=== PATIENT | male | born 1935 | race Caucasian/White ===

== ENCOUNTER 2020-08-26 09:13 | Outpatient (CLI) | payer MEDICARE, OTHER, SELFPAY ==
--- NOTE | 2020-08-26 09:21 | XR_ITS ---
WS: [id number] Right foot, 3 views, 08/26/2020 Clinical Data: PLANTER FASCITIS RIGHT Comparison: None. Findings: No fractures or dislocations are seen. No bone destruction or erosion is noted. There is a small buni on at the head of the right first metatarsal.There is a small plantar spur and an Achilles spur. The plantar surface of the foot shows no abnormalities. XR/XR foot RT min 3V* [id number] Impression: Small bunion at the head of the right first metatarsal.
== END 2020-08-26 09:14 | disposition home or self-care (01) ==
PROVIDERS: PCP Electrodiagnostic Medicine; Visit Provider Electrodiagnostic Medicine
DX: M72.2 Plantar fascial fibromatosis (principal); M79.671 Pain in right foot; E11.9 Type 2 diabetes mellitus without complications; M21.611 Bunion of right foot
CPT/HCPCS: 73630

== ENCOUNTER 2021-01-18 19:41 | Emergency (ER) | payer MEDICARE, OTHER, SELFPAY ==
[2021-01-18 20:35] VITALS: BP 124/80; PULSE 94; RESP 18; TEMP 39.3; O2SAT 93; BMI 21.8
[2021-01-18 23:42] VITALS: BP 151/77; PULSE 89; RESP 20; O2SAT 91
--- NOTE | 2021-01-19 00:36 | ED_ITS ---
Documented by User: GERARDO Clarke 01/19/21 17:14 HPI - COVID General: Chief Complaint: COVID symptoms Stated Complaint: covid+/fever Time Seen by Provider: 01/18/21 23:37 Source: patient Mode of arrival: ambulatory Limitations: no limitations Triage information: No fever, cough or shortness of breath . Exposure to COVID + person last 14 days History of Present Illness: HPI Narrative: Patient is a nice 85-year-old male presents to ED today with a complaint of fever and low O2 readings at home. Patient tells me approximately a week ago he tested positive for COVID at [facility] by his PCP Dr. Yan. He states fevers began today-he was 102.7 upon arrival. States he has a history of diabetes and kidney disease. He states he has some mild chest pains with deep inhalation. MD complaint: known COVID positive Prior covid testing: yes, results known COVID 19 common symptoms: positive fever(s) and productive cough; negative dyspnea, fatigue, body aches, headache(s), nausea, vomiting or diarrhea COVID 19 other sytmptoms: negative chest pain Severity: mild Pertinent comorbid conditions: diabetes and chronic kidney disease Treatment prior to arrival: none COVID Results: No Data to Display Review of Systems Const: Reports: fever(s); Denies: body aches or fatigue Card: Denies: chest pain, palpitations, irregular heart rhythm, edema, swelling of feet/ankles, lightheadedness, syncope or pre-syncope Resp: Reports: productive cough and chest congestion; Denies: dyspnea GI: Denies: abdominal pain, nausea, vomiting or diarrhea Musc: Denies: neck pain or back pain Skin/Breast: Denies: rash Neuro: Denies: headache(s), numbness in extremities, weakness in extremities or sensory changes PFS ED PFSH: Family History (Updated 02/11/20 @ 13:16 by ARISTIDES Lino) Father , AT AGE 83 Dementia Mother , AT AGE 87 Diabetes Social History (Updated 02/11/20 @ 13:17 by ARISTIDES Lino) Smoking and tobacco status: never smoked Alcohol intake: never Adopted: No Caregiver/support person: No Lives independently: No Household members: spouse Marital status: Current occupational status: retired Physical Exam Const: COMMON NORMALS: no acute distress, patient oriented x3, no limitations and alert GENERAL APPEARANCE: cooperative and frail appearing ORIENTATION/CONSCIOUSNESS: Yes awake, Yes oriented to person, Yes oriented to place and Yes oriented to time HENMT: COMMON NORMALS: normocephalic and atraumatic HEAD & SCALP: normocephalic and atraumatic Resp: COMMON NORMALS: normal respiratory effort and clear to auscultation bilaterally AUSCULTATION: clear to auscultation bilaterally Cardio: COMMON NORMALS: regular rate and regular rhythm RATE: regular rate RHYTHM: regular rhythm GI: COMMON NORMALS: Normal to inspection, nondistended, normoactive bowel sounds present, Soft to palpation, non-tender and no masses PALPATION: Yes Soft to palpation Extremity: COMMON NORMALS: no calf tenderness and no pedal edema Neuro: LAVINIA COMA SCALE: document GCS findings Lavinia coma scale eye opening: Spontaneous [facility] coma scale verbal response: Orientated [facility] coma scale motor response: Obey commands [facility] coma scale total score: 15 COMMON NORMALS: patient oriented x3 SENSORIUM/ORIENTATION: Yes alert, Yes oriented to person, Yes oriented to place and Yes oriented to time Skin: COMMON NORMALS: no rashes or lesions noted GENERAL SKIN EXAM: no rashes or lesions noted Course Vital Signs: Vital signs: Vital Signs Temperature 98.5 F 01/19/21 04:12 Pulse Rate 87 01/19/21 05:12 Respiratory Rate 18 01/19/21 05:12 Blood Pressure 126/73 01/19/21 05:12 Pulse Oximetry 98 01/19/21 05:12 MDM - COVID MDM Narrative: Medical decision making narrative: Care transferred to Dr. Landis pending labs. He is satting around 93% on RA at rest. RT did do home O2 evaluation and stated he dropped to 87-88% with ambulation so qualifies for home O2 if he doesn't get admitted. Clinically he looks pretty good. Afebrile after medications. Lab Data: Labs: Lab Results 01/18/21 01/18/21 01/18/21 Range/Units 23:50 23:50 23:50 WBC 5.5 (4.0-10.0) 10^3/ uL RBC 4.53 (4.1-5.3) 10^6/u L Hgb 13.5 (11.7-16.6) g/dL Hct 41.4 L (42.0-52.0) % MCV 91.4 (80-94) fL MCH 29.8 (28.0-34.0) pg MCHC 32.6 (30.0-36.0) g/dL RDW 13.0 (12.1-15.1) % Plt Count 198 (130-400) 10^3/c mm MPV 11.2 H (7.4-10.4) fL Neut % (Auto) 79.0 % Lymph % (Auto) 11.5 % [place] % (Auto) 8.9 % Eos % (Auto) 0.0 % Baso % (Auto) 0.2 % Neut # (Auto) 4.33 (1.8-7.7) 10^3/u L Lymph # (Auto) 0.6 L (0.8-4.8) 10^3/u L [place] # (Auto) 0.5 (0.2-0.9) 10^3/u L Eos # (Auto) 0.0 (0.0-0.8) 10^3/u L Baso # (Auto) 0.0 (0.0-0.1) 10^3/u L Nucleated RBC % (a uto) 0 % Nucleated RBCs # 0.0 /100WBC PT (12.1-14.9) SECO NDS INR (0.8-1.2) APTT (23.9-36.7) SECO NDS Fibrinogen (174-498) mg/dL D-Dimer (0-0.59) ug/mIFE U Sodium 127 L (136-145) mmol/L Potassium 4.9 (3.5-5.1) mmol/L Chloride 93 L (98-107) mmol/L Carbon Dioxide 22 (22-29) mmol/L Anion Gap 16.9 (5-19) BUN 24 H (8-23) mg/dL Creatinine 1.0 (0.7-1.2) mg/dL GFR Calculation Not Reportable Glucose 218 H (65-115) mg/dL Calculated Osmolal ity 275 L (285-295) mOsm/k g Lactic Acid 1.2 (0.5-2.2) mmol/L Calcium 8.4 L (8.5-10.5) mg/dL Ferritin (30-400) ng/mL Total Bilirubin 0.2 (0.15-1.2) mg/dL AST 34 (0-40) U/L ALT 25 (0-41) U/L Alkaline Phosphata se 51 (40-130) IU/L Creatine Kinase (39-308) U/L Troponin T Gen 5 n g/L (0-15) ng/L C-Reactive Protein (0.0-4.9) mg/L Total Protein 6.4 L (6.6-8.7) g/dL Albumin 3.8 (3.5-5.2) g/dL Globulin 2.6 (1.3-4.6) g/dL Procalcitonin (0-0.5) ng/mL Influenza Type A A g (Negative) Influenza Type B A g (Negative) 01/18/21 01/18/21 01/19/21 Range/Units 23:50 23:50 02:46 WBC (4.0-10.0) 10^3/ uL RBC (4.1-5.3) 10^6/u L Hgb (11.7-16.6) g/dL Hct (42.0-52.0) % MCV (80-94) fL MCH (28.0-34.0) pg MCHC (30.0-36.0) g/dL RDW (12.1-15.1) % Plt Count (130-400) 10^3/c mm MPV (7.4-10.4) fL Neut % (Auto) % Lymph % (Auto) % [place] % (Auto) % Eos % (Auto) % Baso % (Auto) % Neut # (Auto) (1.8-7.7) 10^3/u L Lymph # (Auto) (0.8-4.8) 10^3/u L [place] # (Auto) (0.2-0.9) 10^3/u L Eos # (Auto) (0.0-0.8) 10^3/u L Baso # (Auto) (0.0-0.1) 10^3/u L Nucleated RBC % (a uto) % Nucleated RBCs # /100WBC PT 13.10 (12.1-14.9) SECO NDS INR 0.96 (0.8-1.2) APTT 31.9 (23.9-36.7) SECO NDS Fibrinogen 437 (174-498) mg/dL D-Dimer 0.78 H (0-0.59) ug/mIFE U Sodium (136-145) mmol/L Potassium (3.5-5.1) mmol/L Chloride (98-107) mmol/L Carbon Dioxide (22-29) mmol/L Anion Gap (5-19) BUN (8-23) mg/dL Creatinine (0.7-1.2) mg/dL GFR Calculation Glucose (65-115) mg/dL Calculated Osmolal ity (285-295) mOsm/k g Lactic Acid (0.5-2.2) mmol/L Calcium (8.5-10.5) mg/dL Ferritin 1563 H (30-400) ng/mL Total Bilirubin (0.15-1.2) mg/dL AST (0-40) U/L ALT (0-41) U/L Alkaline Phosphata se (40-130) IU/L Creatine Kinase 218 (39-308) U/L Troponin T Gen 5 n g/L 30 H (0-15) ng/L C-Reactive Protein 71.2 H (0.0-4.9) mg/L Total Protein (6.6-8.7) g/dL Albumin (3.5-5.2) g/dL Globulin (1.3-4.6) g/dL Procalcitonin 0.18 (0-0.5) ng/mL Influenza Type A A g (Negative) Influenza Type B A g (Negative) 01/19/21 Range/Units 02:46 WBC (4.0-10.0) 10^3/ uL RBC (4.1-5.3) 10^6/u L Hgb (11.7-16.6) g/dL Hct (42.0-52.0) % MCV (80-94) fL MCH (28.0-34.0) pg MCHC (30.0-36.0) g/dL RDW (12.1-15.1) % Plt Count (130-400) 10^3/c mm MPV (7.4-10.4) fL Neut % (Auto) % Lymph % (Auto) % [place] % (Auto) % Eos % (Auto) % Baso % (Auto) % Neut # (Auto) (1.8-7.7) 10^3/u L Lymph # (Auto) (0.8-4.8) 10^3/u L [place] # (Auto) (0.2-0.9) 10^3/u L Eos # (Auto) (0.0-0.8) 10^3/u L Baso # (Auto) (0.0-0.1) 10^3/u L Nucleated RBC % (a uto) % Nucleated RBCs # /100WBC PT (12.1-14.9) SECO NDS INR (0.8-1.2) APTT (23.9-36.7) SECO NDS Fibrinogen (174-498) mg/dL D-Dimer (0-0.59) ug/mIFE U Sodium (136-145) mmol/L Potassium (3.5-5.1) mmol/L Chloride (98-107) mmol/L Carbon Dioxide (22-29) mmol/L Anion Gap (5-19) BUN (8-23) mg/dL Creatinine (0.7-1.2) mg/dL GFR Calculation Glucose (65-115) mg/dL Calculated Osmolal ity (285-295) mOsm/k g Lactic Acid (0.5-2.2) mmol/L Calcium (8.5-10.5) mg/dL Ferritin (30-400) ng/mL Total Bilirubin (0.15-1.2) mg/dL AST (0-40) U/L ALT (0-41) U/L Alkaline Phosphata se (40-130) IU/L Creatine Kinase (39-308) U/L Troponin T Gen 5 n g/L (0-15) ng/L C-Reactive Protein (0.0-4.9) mg/L Total Protein (6.6-8.7) g/dL Albumin (3.5-5.2) g/dL Globulin (1.3-4.6) g/dL Procalcitonin (0-0.5) ng/mL Influenza Type A A g Negative (Negative) Influenza Type B A g Negative (Negative) Imaging Data: CXR: Radiologist's impression: [facility] [facility] [place], [place] [address]HFzb ReportSigned Patient: Celestine Duong #: [id number]: 8Acct#:[id number]/Sex: 85 / MADM Date: 01/18/21Loc: ERRoom/Bed:Attending Dr: Ordering Provider/Ordering MD: Rosi Esqueda Date of Service: 01/19/21 Procedure(s): XR chest 1V portable [id number] Accession Number(s): [id number] Report Number: [id number] PROCEDURE INFORMATION: Exam: XR Chest Exam date and time: 01/19/2021 12:34 AM Age: 85 years old Clinical indication: Cough and fever and shortness of breath; Patient HX: Cough/fever/sob. Covid +; Additional info: Covid, fevers TECHNIQUE: Imaging protocol: XR of the chest. Views: 1 view. COMPARISON: CR Chest 1 [place] [id number] 11/22/2016 4:03 PM FINDINGS: Lungs: Probable atelectasis versus scarring at the left costophrenic angle. More patchy infiltrates at the medial left lung base. There is a stable calcified granuloma in the left upper lung. Pleural spaces: Unremarkable. No pleural effusion. No pneumothorax. Heart/Mediastinum: Unremarkable. No cardiomegaly. Bones/joints: Unremarkable. XR/XR chest 1V portable [id number] IMPRESSION: Probable patchy infiltrates at the left lung base. Dictated By:Adam Faye MDSigned By:Adam Faye MDSigned Date/Time:01/19/210DD/ 0238 COVID Results: No Data to Display Discharge Plan Discharge Patient Disposition: Home Clinical Impression: COVID-19, Acute hyponatremia Condition: Stable Prescriptions: New albuterol sulfate 90 mcg/actuation HFA aerosol inhaler 2 inh INHALATION Q6H PRN (Reason: shortness of breath or wheezing) Qty: 8 RF: 0 Discharge Orders: Discharge ED (Routine); Ordered 01/19/21 Ordered By: Pascual Landis Other Ambulatory Orders: DME: Oxygen (Order) Location: None Selected Ordered By: Pascual Landis Referrals: Juan Luis Yan DO [Primary Care Provider] - 1-3 days Discharge Diet: Advance as tolerated Discharge Activity: Resume usual activity Patient Instructions: Opioid Safety Coding Level of Care Code ED Utility Assembler for Chg Fwd Exam Comprehensive Documented by User: Pascual Landis MD 01/19/21 04:49 HPI - COVID General: Chief Complaint: COVID symptoms Stated Complaint: covid+/fever Time Seen by Provider: 01/18/21 23:37 COVID Results: No Data to Display [facility] ED PFSH: Family History (Updated 02/11/20 @ 13:16 by ARISTIDES Lino) Father , AT AGE 83 Dementia Mother , AT AGE 87 Diabetes Social History (Updated 02/11/20 @ 13:17 by ARISTIDES Lino) Smoking and tobacco status: never smoked Alcohol intake: never Adopted: No Caregiver/support person: No Lives independently: No Household members: spouse Marital status: Current occupational status: retired Course Vital Signs: Vital signs: Vital Signs Temperature 98.5 F 01/19/21 04:12 Pulse Rate 87 01/19/21 05:12 Respiratory Rate 18 01/19/21 05:12 Blood Pressure 126/73 01/19/21 05:12 Pulse Oximetry 98 01/19/21 05:12 MDM - COVID MDM Narrative: Medical decision making narrative: I saw patient with above midlevel. Patient does have COVID-19. Any fall asleep he does have some slight hypoxia waking still not requiring room air but will place him on 2 L of home oxygen. Inflammatory markers are not elevated and chest x-ray shows slight airspace disease. I feel he is stable for discharge on home oxygen. Patient given steroid here and will discharge on albuterol. He does have pulse ox at home informed to monitor his pulse ox and return if he has any hypoxia. He understands agrees the plan. Lab Data: Labs: Lab Results 01/18/21 01/18/21 01/18/21 Range/Units 23:50 23:50 23:50 WBC 5.5 (4.0-10.0) 10^3/ uL RBC 4.53 (4.1-5.3) 10^6/u L Hgb 13.5 (11.7-16.6) g/dL Hct 41.4 L (42.0-52.0) % MCV 91.4 (80-94) fL MCH 29.8 (28.0-34.0) pg MCHC 32.6 (30.0-36.0) g/dL RDW 13.0 (12.1-15.1) % Plt Count 198 (130-400) 10^3/c mm MPV 11.2 H (7.4-10.4) fL Neut % (Auto) 79.0 % Lymph % (Auto) 11.5 % [place] % (Auto) 8.9 % Eos % (Auto) 0.0 % Baso % (Auto) 0.2 % Neut # (Auto) 4.33 (1.8-7.7) 10^3/u L Lymph # (Auto) 0.6 L (0.8-4.8) 10^3/u L [place] # (Auto) 0.5 (0.2-0.9) 10^3/u L Eos # (Auto) 0.0 (0.0-0.8) 10^3/u L Baso # (Auto) 0.0 (0.0-0.1) 10^3/u L Nucleated RBC % (a uto) 0 % Nucleated RBCs # 0.0 /100WBC PT (12.1-14.9) SECO NDS INR (0.8-1.2) APTT (23.9-36.7) SECO NDS Fibrinogen (174-498) mg/dL D-Dimer (0-0.59) ug/mIFE U Sodium 127 L (136-145) mmol/L Potassium 4.9 (3.5-5.1) mmol/L Chloride 93 L (98-107) mmol/L Carbon Dioxide 22 (22-29) mmol/L Anion Gap 16.9 (5-19) BUN 24 H (8-23) mg/dL Creatinine 1.0 (0.7-1.2) mg/dL GFR Calculation Not Reportable Glucose 218 H (65-115) mg/dL Calculated Osmolal ity 275 L (285-295) mOsm/k g Lactic Acid 1.2 (0.5-2.2) mmol/L Calcium 8.4 L (8.5-10.5) mg/dL Ferritin (30-400) ng/mL Total Bilirubin 0.2 (0.15-1.2) mg/dL AST 34 (0-40) U/L ALT 25 (0-41) U/L Alkaline Phosphata se 51 (40-130) IU/L Creatine Kinase (39-308) U/L Troponin T Gen 5 n g/L (0-15) ng/L C-Reactive Protein (0.0-4.9) mg/L Total Protein 6.4 L (6.6-8.7) g/dL Albumin 3.8 (3.5-5.2) g/dL Globulin 2.6 (1.3-4.6) g/dL Procalcitonin (0-0.5) ng/mL Influenza Type A A g (Negative) Influenza Type B A g (Negative) 01/18/21 01/18/21 01/19/21 Range/Units 23:50 23:50 02:46 WBC (4.0-10.0) 10^3/ uL RBC (4.1-5.3) 10^6/u L Hgb (11.7-16.6) g/dL Hct (42.0-52.0) % MCV (80-94) fL MCH (28.0-34.0) pg MCHC (30.0-36.0) g/dL RDW (12.1-15.1) % Plt Count (130-400) 10^3/c mm MPV (7.4-10.4) fL Neut % (Auto) % Lymph % (Auto) % [place] % (Auto) % Eos % (Auto) % Baso % (Auto) % Neut # (Auto) (1.8-7.7) 10^3/u L Lymph # (Auto) (0.8-4.8) 10^3/u L [place] # (Auto) (0.2-0.9) 10^3/u L Eos # (Auto) (0.0-0.8) 10^3/u L Baso # (Auto) (0.0-0.1) 10^3/u L Nucleated RBC % (a uto) % Nucleated RBCs # /100WBC PT 13.10 (12.1-14.9) SECO NDS INR 0.96 (0.8-1.2) APTT 31.9 (23.9-36.7) SECO NDS Fibrinogen 437 (174-498) mg/dL D-Dimer 0.78 H (0-0.59) ug/mIFE U Sodium (136-145) mmol/L Potassium (3.5-5.1) mmol/L Chloride (98-107) mmol/L Carbon Dioxide (22-29) mmol/L Anion Gap (5-19) BUN (8-23) mg/dL Creatinine (0.7-1.2) mg/dL GFR Calculation Glucose (65-115) mg/dL Calculated Osmolal ity (285-295) mOsm/k g Lactic Acid (0.5-2.2) mmol/L Calcium (8.5-10.5) mg/dL Ferritin 1563 H (30-400) ng/mL Total Bilirubin (0.15-1.2) mg/dL AST (0-40) U/L ALT (0-41) U/L Alkaline Phosphata se (40-130) IU/L Creatine Kinase 218 (39-308) U/L Troponin T Gen 5 n g/L 30 H (0-15) ng/L C-Reactive Protein 71.2 H (0.0-4.9) mg/L Total Protein (6.6-8.7) g/dL Albumin (3.5-5.2) g/dL Globulin (1.3-4.6) g/dL Procalcitonin 0.18 (0-0.5) ng/mL Influenza Type A A g (Negative) Influenza Type B A g (Negative) 01/19/21 Range/Units 02:46 WBC (4.0-10.0) 10^3/ uL RBC (4.1-5.3) 10^6/u L Hgb (11.7-16.6) g/dL Hct (42.0-52.0) % MCV (80-94) fL MCH (28.0-34.0) pg MCHC (30.0-36.0) g/dL RDW (12.1-15.1) % Plt Count (130-400) 10^3/c mm MPV (7.4-10.4) fL Neut % (Auto) % Lymph % (Auto) % [place] % (Auto) % Eos % (Auto) % Baso % (Auto) % Neut # (Auto) (1.8-7.7) 10^3/u L Lymph # (Auto) (0.8-4.8) 10^3/u L [place] # (Auto) (0.2-0.9) 10^3/u L Eos # (Auto) (0.0-0.8) 10^3/u L Baso # (Auto) (0.0-0.1) 10^3/u L Nucleated RBC % (a uto) % Nucleated RBCs # /100WBC PT (12.1-14.9) SECO NDS INR (0.8-1.2) APTT (23.9-36.7) SECO NDS Fibrinogen (174-498) mg/dL D-Dimer (0-0.59) ug/mIFE U Sodium (136-145) mmol/L Potassium (3.5-5.1) mmol/L Chloride (98-107) mmol/L Carbon Dioxide (22-29) mmol/L Anion Gap (5-19) BUN (8-23) mg/dL Creatinine (0.7-1.2) mg/dL GFR Calculation Glucose (65-115) mg/dL Calculated Osmolal ity (285-295) mOsm/k g Lactic Acid (0.5-2.2) mmol/L Calcium (8.5-10.5) mg/dL Ferritin (30-400) ng/mL Total Bilirubin (0.15-1.2) mg/dL AST (0-40) U/L ALT (0-41) U/L Alkaline Phosphata se (40-130) IU/L Creatine Kinase (39-308) U/L Troponin T Gen 5 n g/L (0-15) ng/L C-Reactive Protein (0.0-4.9) mg/L Total Protein (6.6-8.7) g/dL Albumin (3.5-5.2) g/dL Globulin (1.3-4.6) g/dL Procalcitonin (0-0.5) ng/mL Influenza Type A A g Negative (Negative) Influenza Type B A g Negative (Negative) COVID Results: No Data to Display Discharge Plan Discharge Patient Disposition: Home Clinical Impression: COVID-19, Acute hyponatremia Condition: Stable Prescriptions: New albuterol sulfate 90 mcg/actuation HFA aerosol inhaler 2 inh INHALATION Q6H PRN (Reason: shortness of breath or wheezing) Qty: 8 RF: 0 Discharge Orders: Discharge ED (Routine); Ordered 01/19/21 Ordered By: Pascual Landis Other Ambulatory Orders: DME: Oxygen (Order) Location: None Selected Ordered By: Pascual Landis Referrals: Juan Luis Yan DO [Primary Care Provider] - 1-3 days Discharge Diet: Advance as tolerated Discharge Activity: Resume usual activity Patient Instructions: Opioid Safety Coding Level of Care Code ED Utility Assembler for Chg Fwd Exam Comprehensive
[2021-01-19 00:51] LABS: Basophils % 0.2 %; Hematocrit 41.4 % (42.0-52.0); Hemoglobin 13.5 g/dL (11.7-16.6); Lymphocytes # 0.6 10^3/uL (0.8-4.8); Lymphocytes % 11.5 %; Mean Corpuscular HGB Conc 32.6 g/dL (30.0-36.0); Mean Corpuscular Hemoglobin 29.8 pg (28.0-34.0); Mean Corpuscular Volume 91.4 fL (80-94); Mean Platelet Volume 11.2 fL (7.4-10.4); Monocytes # 0.5 10^3/uL (0.2-0.9); Monocytes % 8.9 %; Neutrophils # 4.33 10^3/uL (1.8-7.7); Nucleated Red Blood Cells % 0 %; Platelet Count 198 10^3/cmm (130-400); Red Blood Count 4.53 10^6/uL (4.1-5.3); White Blood Count 5.5 10^3/uL (4.0-10.0)
[2021-01-19 01:06] LABS: Alanine Aminotransferase 25 U/L (0-41); Albumin Level 3.8 g/dL (3.5-5.2); Alkaline Phosphatase 51 IU/L (40-130); Anion Gap 16.9 (5-19); Aspartate Amino Transferase 34 U/L (0-40); Blood Urea Nitrogen 24 mg/dL (8-23); Calcium 8.4 mg/dL (8.5-10.5); Carbon Dioxide 22 mmol/L (22-29); Chloride 93 mmol/L (98-107); Globulin 2.6 g/dL (1.3-4.6); Glucose 218 mg/dL (65-115); Osmolality Calculated 275 mOsm/kg (285-295); Potassium 4.9 mmol/L (3.5-5.1); Sodium 127 mmol/L (136-145); Total Bilirubin 0.2 mg/dL (0.15-1.2); Total Protein 6.4 g/dL (6.6-8.7)
[2021-01-19 01:07] LABS: Lactic Sepsis W/Reflex 1.2 mmol/L (0.5-2.2)
[2021-01-19] MEDS: acetaminophen 500 mg Tablet 1000 MG PO (01:40)
[2021-01-19 01:42] VITALS: O2SAT 2; O2SAT 87
[2021-01-19 02:40] LABS: C Reactive Protein 71.2 mg/L (0.0-4.9); Creatine Phosphokinase 218 U/L (39-308); Troponin T (5th) Once 30 ng/L (0-15)
[2021-01-19 02:48] LABS: Procalcitonin 0.18 ng/mL (0-0.5)
[2021-01-19 02:53] VITALS: BP 138/78; PULSE 87; RESP 18; O2SAT 94
[2021-01-19 03:23] LABS: INR 0.96 (0.8-1.2)
[2021-01-19 03:24] LABS: Fibrinogen 437 mg/dL (174-498); Partial Thromboplastin Time 31.9 SECONDS (23.9-36.7)
[2021-01-19 03:27] LABS: D Dimer 0.78 ug/mIFEU (0-0.59)
[2021-01-19 03:33] LABS: Influenza A by IFA Negative (Negative); Influenza B by IFA Negative (Negative)
[2021-01-19] MEDS: sodium chloride 0.9% 500 ML 999 ML IV (04:04)
[2021-01-19] MEDS: dexamethasone 10 mg/mL INJ 6 MG IVP (04:05)
[2021-01-19 04:07] LABS: Ferritin 1563 ng/mL (30-400)
[2021-01-19 04:12] VITALS: BP 124/73; PULSE 77; RESP 18; TEMP 36.9; O2SAT 95
[2021-01-19 05:12] VITALS: BP 126/73; PULSE 87; RESP 18; O2SAT 98
== END 2021-01-19 05:14 | disposition home or self-care (01) ==
PROVIDERS: Physician Assistant; Emergency Provider Emergency Medicine; PCP Electrodiagnostic Medicine
DX: U07.1 COVID-19 (principal); E87.1 Hypo-osmolality and hyponatremia
CPT/HCPCS: 71045; 80053; 82550; 82728; 83605; 84145; 84484; 85025; 85378; 85384; 85610; 85730; 86140; 87804; 96374; 99284; J1100; J7040

== ENCOUNTER 2021-01-20 08:08 | Outpatient (CLI) | payer MEDICARE, OTHER, SELFPAY ==
[2021-01-20 08:54] VITALS: BP 121/70; PULSE 77; RESP 14; TEMP 36.4; O2SAT 92
[2021-01-20 09:05] VITALS: BP 120/67; PULSE 74; RESP 19; O2SAT 92
== END 2021-01-20 11:51 | disposition home or self-care (01) ==
PROVIDERS: PCP Electrodiagnostic Medicine; Visit Provider Family Medicine
DX: U07.1 COVID-19 (principal)
CPT/HCPCS: 96365

== ENCOUNTER 2021-01-24 10:51 | Inpatient (IN) | payer MEDICARE, OTHER, SELFPAY ==
[2021-01-24] VITALS (8 sets, daily range): BP systolic 129–141; BP diastolic 72–100; PULSE 64–94; RESP 16–20; TEMP 36.7; O2SAT 93–98; BMI 19.2
--- NOTE | 2021-01-24 10:59 | ED_ITS ---
HPI - SOB/Dyspnea General: Chief Complaint: ER Hold Stated Complaint: SOB/ COVID + Time Seen by Provider: 01/24/21 10:57 History of Present Illness: HPI Narrative: Mr. Duong is a 85-year-old gentleman with a significant past medical history of noninsulin-dependent diabetes and CKD who presents to the emergency department with a chief complaint of shortness of breath. Symptom onset was approximately 01/09 and described as gradual in onset. 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 He does not require home oxygen however he has become increasingly short of breath and now requires 2 L of oxygen which she has had to turn up to 4 over the past few days. The patient reports associated generalized malaise, weakness, fatigue. They rate the intensity of their symptoms as moderate to severe and describe the character as aching. Overall the course of symptoms has been worsening. The patient has not had similar episodes in the past. The patient has tried occasional ibuprofen at home which has provided mild relief. There are no other specific exacerbating or alleviating factors reported. The patient previously presented on 01/19 and was hyponatremic at that time. Review of Systems General: Reports: 10 or more systems reviewed and unremarkable except in HPI and below Narrative: CONSTITUTIONAL: Generalized weakness, subjective fevers, chills, fatigue EYES - denies pain, denies loss of vision EARS - denies ear issues. NOSE - denies congestion or rhinorrhea. THROAT - denies sore throat or difficulty swallowing. CARDIOVASCULAR - denies chest pain and palpitations RESPIRATORY -positive for cough and shortness of breath GASTROINTESTINAL - denies abdominal pain, no nausea vomiting, no changes in bowel habits GENITOURINARY - denies dysuria or urinary frequency MUSCULOSKELETAL- denies deformity or pain SKIN - denies rashes or new changed skin lesions NEUROLOGIC - denies focal weakness or sensory changes HEMATOLOGIC/LYMPHATIC - denies easy bruising or lymphadenopathy. [facility] ED PFSH: Medical History Afib CKD (chronic kidney disease) Diabetes Diabetes mellitus History of amputation of left hand Paroxysmal supraventricular tachycardia Ureteral calculus, left Surgical History History of removal of ureteral stent Hx of right inguinal hernia repair Family History Father , AT AGE 83 Dementia Mother , AT AGE 87 Diabetes Social History Smoking and tobacco status: never smoked Alcohol intake: never Adopted: No Caregiver/support person: No Lives independently: No Household members: spouse Marital status: Current occupational status: retired Physical Exam Narrative: EXAM NARRATIVE: GENERAL/CONSTITUTIONAL -mildly ill-appearing. No acute distress. Eyes - PERRL, no conjunctival injection ENMT - Atraumatic external nose and ears. Dry mucous membranes NECK - supple. trachea midline CARDIOVASCULAR - regular rate and rhythm. Peripheral pulses 2+ and equal RESPIRATORY -coarse breath sounds bilaterally most pronounced at the bases. No retractions or accessory muscle use. ABDOMEN/GI - Nontender/Nondistended. No tenderness to percussion or evidence of peritonitis MSK - Extremities without obvious deformity or tenderness to palpation SKIN - Warm, Dry NEURO - alert and appropriately oriented. strength and sensation intact. Moves all extremities equally. PSYCH - Appropriate mood and affect Course ED course: - Patient was seen and evaluated by me at bedside - Patient placed on cardiac monitors, IV access obtained - Initial evaluation notable for somewhat ill appearance, no acute distress. Patient is requiring supplemental oxygen. - Labs notable for mild leukocytosis, normocytic anemia. Metabolic panel with improved hyponatremia. Patient has mild decrease in bicarb and elevation in anion gap. No ketones present and given presence of illness COVID-19 is a more likely explanation then a hyperglycemia driven condition at this time. - Imaging notable for minimal patchiness though somewhat unimpressive given patient's degree of hypoxemia. Given this finding D-dimer was ordered which was elevated. CTA subsequently showed no evidence of pulmonary embolism. - Upon serial reexamination after treatment the patient was similar - Based on patient history, evaluation, labs, and imaging as interpreted the most likely cause of the patient's condition is COVID-19 related hypoxemia - The results of ED evaluation were discussed with the patient including plan for admission due to requirement for level of care not available if discharged to prevent significant worsening/deterioration. - Admitting service was contacted and Dr Ray with hospitalist internal medicine agreed to admit the patient - Patient was admitted without further deterioration or significant events. Vital Signs: Vital signs: Vital Signs Temperature 98.0 F 01/24/21 10:53 Pulse Rate 76 08/09/21 21:25 Respiratory Rate 18 01/24/21 21:25 Blood Pressure 132/78 01/24/21 17:46 Pulse Oximetry 93 01/24/21 21:25 MDM - SOB/Dyspnea Medical Records: Attestation: I reviewed the patient's medical records. Lab Data: Attestation: I reviewed the patient's lab results. Labs: Lab Results 01/24/21 01/24/21 01/24/21 Range/Units 11:12 11:12 11:12 WBC 11.0 H (4.0-10.0) 10^3/ uL RBC 3.92 L (4.1-5.3) 10^6/u L Hgb 11.6 L (11.7-16.6) g/dL Hct 35.5 L (42.0-52.0) % MCV 90.6 (80-94) fL MCH 29.6 (28.0-34.0) pg MCHC 32.7 (30.0-36.0) g/dL RDW 13.1 (12.1-15.1) % Plt Count 354 (130-400) 10^3/c mm MPV 10.1 (7.4-10.4) fL Neut % (Auto) 89.7 % Lymph % (Auto) 4.7 % Hand % (Auto) 4.6 % Eos % (Auto) 0.0 % Baso % (Auto) 0.1 % Neut # (Auto) 9.83 H (1.8-7.7) 10^3/u L Lymph # (Auto) 0.5 L (0.8-4.8) 10^3/u L Hand # (Auto) 0.5 (0.2-0.9) 10^3/u L Eos # (Auto) 0.0 (0.0-0.8) 10^3/u L Baso # (Auto) 0.0 (0.0-0.1) 10^3/u L Nucleated RBC % (a uto) 0 % Nucleated RBCs # 0.0 /100WBC D-Dimer (0-0.59) ug/mIFE U Sodium 135 L (136-145) mmol/L Potassium 4.8 (3.5-5.1) mmol/L Chloride 101 (98-107) mmol/L Carbon Dioxide 16 L (22-29) mmol/L Anion Gap 22.8 H (5-19) BUN 39 H (8-23) mg/dL Creatinine 0.8 (0.7-1.2) mg/dL GFR Calculation Not Reportable Glucose 346 H (65-115) mg/dL Calculated Osmolal ity 303 H (285-295) mOsm/k g Lactic Acid (0.5-2.2) mmol/L Calcium 7.9 L (8.5-10.5) mg/dL Total Bilirubin 0.3 (0.15-1.2) mg/dL AST 12 (0-40) U/L ALT 17 (0-41) U/L Alkaline Phosphata se 56 (40-130) IU/L Troponin T Baselin e 25 H (0-15) ng/L Troponin T 120 Min [place] (0-15) ng/L Delta Troponin T (0-10) ABS# Troponin T Hi Sens 6Hr (0-15) ng/L Troponin T Hi Sens 6Hr Delta (0-12) ng/L C-Reactive Protein 116.2 H (0.0-4.9) mg/L NT-Pro-B Natriuret Pep 360 (0-450) pg/mL Total Protein 5.5 L (6.6-8.7) g/dL Albumin 2.9 L (3.5-5.2) g/dL Globulin 2.6 (1.3-4.6) g/dL Procalcitonin 0.28 (0-0.5) ng/mL Serum Ketones (Negative) SARS-CoV-2 Ag (Rap id) (Negative) 01/24/21 01/24/21 01/24/21 Range/Units 11:12 13:00 13:17 WBC (4.0-10.0) 10^3/ uL RBC (4.1-5.3) 10^6/u L Hgb (11.7-16.6) g/dL Hct (42.0-52.0) % MCV (80-94) fL MCH (28.0-34.0) pg MCHC (30.0-36.0) g/dL RDW (12.1-15.1) % Plt Count (130-400) 10^3/c mm MPV (7.4-10.4) fL Neut % (Auto) % Lymph % (Auto) % Hand % (Auto) % Eos % (Auto) % Baso % (Auto) % Neut # (Auto) (1.8-7.7) 10^3/u L Lymph # (Auto) (0.8-4.8) 10^3/u L Hand # (Auto) (0.2-0.9) 10^3/u L Eos # (Auto) (0.0-0.8) 10^3/u L Baso # (Auto) (0.0-0.1) 10^3/u L Nucleated RBC % (a uto) % Nucleated RBCs # /100WBC D-Dimer (0-0.59) ug/mIFE U Sodium (136-145) mmol/L Potassium (3.5-5.1) mmol/L Chloride (98-107) mmol/L Carbon Dioxide (22-29) mmol/L Anion Gap (5-19) BUN (8-23) mg/dL Creatinine (0.7-1.2) mg/dL GFR Calculation Glucose (65-115) mg/dL Calculated Osmolal ity (285-295) mOsm/k g Lactic Acid 1.3 (0.5-2.2) mmol/L Calcium (8.5-10.5) mg/dL Total Bilirubin (0.15-1.2) mg/dL AST (0-40) U/L ALT (0-41) U/L Alkaline Phosphata se (40-130) IU/L Troponin T Baselin e (0-15) ng/L Troponin T 120 Min [place] 21.85 H (0-15) ng/L Delta Troponin T -3.15 L (0-10) ABS# Troponin T Hi Sens 6Hr (0-15) ng/L Troponin T Hi Sens 6Hr Delta (0-12) ng/L C-Reactive Protein (0.0-4.9) mg/L NT-Pro-B Natriuret Pep (0-450) pg/mL Total Protein (6.6-8.7) g/dL Albumin (3.5-5.2) g/dL Globulin (1.3-4.6) g/dL Procalcitonin 0.28 (0-0.5) ng/mL Serum Ketones (Negative) SARS-CoV-2 Ag (Rap id) (Negative) 01/24/21 01/24/21 01/24/21 Range/Units 13:17 14:40 14:50 WBC (4.0-10.0) 10^3/ uL RBC (4.1-5.3) 10^6/u L Hgb (11.7-16.6) g/dL Hct (42.0-52.0) % MCV (80-94) fL MCH (28.0-34.0) pg MCHC (30.0-36.0) g/dL RDW (12.1-15.1) % Plt Count (130-400) 10^3/c mm MPV (7.4-10.4) fL Neut % (Auto) % Lymph % (Auto) % Hand % (Auto) % Eos % (Auto) % Baso % (Auto) % Neut # (Auto) (1.8-7.7) 10^3/u L Lymph # (Auto) (0.8-4.8) 10^3/u L Hand # (Auto) (0.2-0.9) 10^3/u L Eos # (Auto) (0.0-0.8) 10^3/u L Baso # (Auto) (0.0-0.1) 10^3/u L Nucleated RBC % (a uto) % Nucleated RBCs # /100WBC D-Dimer 0.70 H (0-0.59) ug/mIFE U Sodium (136-145) mmol/L Potassium (3.5-5.1) mmol/L Chloride (98-107) mmol/L Carbon Dioxide (22-29) mmol/L Anion Gap (5-19) BUN (8-23) mg/dL Creatinine (0.7-1.2) mg/dL GFR Calculation Glucose (65-115) mg/dL Calculated Osmolal ity (285-295) mOsm/k g Lactic Acid (0.5-2.2) mmol/L Calcium (8.5-10.5) mg/dL Total Bilirubin (0.15-1.2) mg/dL AST (0-40) U/L ALT (0-41) U/L Alkaline Phosphata se (40-130) IU/L Troponin T Baselin e (0-15) ng/L Troponin T 120 Min [place] (0-15) ng/L Delta Troponin T (0-10) ABS# Troponin T Hi Sens 6Hr (0-15) ng/L Troponin T Hi Sens 6Hr Delta (0-12) ng/L C-Reactive Protein (0.0-4.9) mg/L NT-Pro-B Natriuret Pep (0-450) pg/mL Total Protein (6.6-8.7) g/dL Albumin (3.5-5.2) g/dL Globulin (1.3-4.6) g/dL Procalcitonin (0-0.5) ng/mL Serum Ketones Negative (Negative) SARS-CoV-2 Ag (Rap id) Positive H (Negative) 01/24/21 Range/Units 17:05 WBC (4.0-10.0) 10^3/ uL RBC (4.1-5.3) 10^6/u L Hgb (11.7-16.6) g/dL Hct (42.0-52.0) % MCV (80-94) fL MCH (28.0-34.0) pg MCHC (30.0-36.0) g/dL RDW (12.1-15.1) % Plt Count (130-400) 10^3/c mm MPV (7.4-10.4) fL Neut % (Auto) % Lymph % (Auto) % Hand % (Auto) % Eos % (Auto) % Baso % (Auto) % Neut # (Auto) (1.8-7.7) 10^3/u L Lymph # (Auto) (0.8-4.8) 10^3/u L Hand # (Auto) (0.2-0.9) 10^3/u L Eos # (Auto) (0.0-0.8) 10^3/u L Baso # (Auto) (0.0-0.1) 10^3/u L Nucleated RBC % (a uto) % Nucleated RBCs # /100WBC D-Dimer (0-0.59) ug/mIFE U Sodium (136-145) mmol/L Potassium (3.5-5.1) mmol/L Chloride (98-107) mmol/L Carbon Dioxide (22-29) mmol/L Anion Gap (5-19) BUN (8-23) mg/dL Creatinine (0.7-1.2) mg/dL GFR Calculation Glucose (65-115) mg/dL Calculated Osmolal ity (285-295) mOsm/k g Lactic Acid (0.5-2.2) mmol/L Calcium (8.5-10.5) mg/dL Total Bilirubin (0.15-1.2) mg/dL AST (0-40) U/L ALT (0-41) U/L Alkaline Phosphata se (40-130) IU/L Troponin T Baselin e (0-15) ng/L Troponin T 120 Min [place] (0-15) ng/L Delta Troponin T (0-10) ABS# Troponin T Hi Sens 6Hr 24.59 H (0-15) ng/L Troponin T Hi Sens 6Hr Delta -0.41 L (0-12) ng/L C-Reactive Protein (0.0-4.9) mg/L NT-Pro-B Natriuret Pep (0-450) pg/mL Total Protein (6.6-8.7) g/dL Albumin (3.5-5.2) g/dL Globulin (1.3-4.6) g/dL Procalcitonin (0-0.5) ng/mL Serum Ketones (Negative) SARS-CoV-2 Ag (Rap id) (Negative) Imaging Data^: CXR: Attestation: I personally reviewed and interpreted this imaging study as follows: My impression: Some patchy infiltrates present Radiologist's impression: 1. Stable left basilar pulmonary subsegmental atelectasis. 2. Somewhat nodular density right mid chest. This could represent focal pulmonary pneumonitis. Post convalescent radiographic follow-up recommended to exclude underlying pulmonary nodule. EKG Data^: EKG 1: Attestation: I personally reviewed and interpreted this EKG as follows: EKG Interpretation Date: 01/24/21 EKG interpretation time: 11:51 Prior EKG tracings: not available for review Ischemic changes: non-specific ST-T wave changes Interpretation: Twelve-lead EKG shows a Regular sinus rhythm with a rate of 68. [place] interval 210. Normal axis. Nonspecific ST segment abnormalities not meeting STEMI criteria. Interpretation: Sinus rhythm. First-degree AV block. Nonspecific ST segment abnormalities. Ectopy. EKG 2: Attestation: I personally reviewed and interpreted this EKG as follows: EKG Interpretation Date: 01/24/21 Prior EKG tracings: available for review Ischemic changes: non-specific ST-T wave changes Interpretation: Regular sinus rhythm at a rate of 70 [place] interval 207. Normal axis. ST segment abnormalities with nonspecific findings not meeting STEMI criteria. Interpretation. Sinus rhythm. First-degree AV block. Similar to prior. EKG 3: Attestation: I personally reviewed and interpreted this EKG as follows: EKG Interpretation Date: 01/24/21 Prior EKG tracings: available for review Ischemic changes: non-specific ST-T wave changes Interpretation: EKG shows a regular sinus rhythm at a rate of 70. [place] interval 202. Normal axis. Interpretation: Sinus rhythm. First-degree AV block. Similar to prior. Discharge Plan Discharge Admit Provider: Fabrizio Ray Coding Level of Care Code ED Simulation Software Engineer for g Nabeel
--- NOTE | 2021-01-24 11:09 | XRR_ITS ---
PROCEDURE INFORMATION: Exam: XR Chest Exam date and time: 01/24/2021 11:09 AM Age: 85 years old Clinical indication: Other: Hypoxemia, ; additional info: Hypoxemia, covid TECHNIQUE: Imaging protocol: XR of the chest. Views: Frontal portable upright view of the chest. COMPARISON: CR (CHEST, ) 01/19/2021 12:48 AM FINDINGS: Lungs: Left upper lobe calcified pulmonary parenchymal granuloma. The pulmonary vasculature is normal. Stable left basilar pulmonary subsegmental atelectasis. Somewhat nodular 10 x 7 mm density lateral right mid chest, previously obscured by the EKG lead. The lungs are otherwise peripherally clear bilaterally. Pleural spaces: No pleural effusion. No pneumothorax. Heart/Mediastinum: The heart is normal in size and contour. Vasculature: Mild aortic arch atherosclerotic calcification without ectasia. Mild tortuosity of the descending thoracic aorta. Bones/joints: No acute abnormality identified. Soft tissues: Unremarkable. XR/XR chest 1V portable [id number] IMPRESSION: 1. Stable left basilar pulmonary subsegmental atelectasis. 2. Somewhat nodular density right mid chest. This could represent focal pulmonary pneumonitis. Post convalescent radiographic follow-up recommended to exclude underlying pulmonary nodule.
--- NOTE | 2021-01-24 11:10 | ECG_ITS ---
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 Measurements Intervals [place] Rate: 68 P: 58 NC: 210 QRS: 11 QRSD: 111 T: 40 QT: 400 QTc: 428 Interpretive Statements SINUS RHYTHM WITH FIRST DEGREE AV BLOCK WITH OCCASIONAL VENTRICULAR PREMATURE COMPLEXES MODERATE INTRAVENTRICULAR CONDUCTION DELAY [110+ ms QRS DURATION] Compared to ECG 10/30/2018 11:28:57 Ventricular premature complex(es) now present First degree AV block now present Myocardial infarct finding no longer present Electronically Signed On 01-24-2021 17:28:28 CDT by Husam Mckeon M.D. [id number]
[2021-01-24 11:20] LABS: Basophils % 0.1 %; Hematocrit 35.5 % (42.0-52.0); Hemoglobin 11.6 g/dL (11.7-16.6); Lymphocytes # 0.5 10^3/uL (0.8-4.8); Lymphocytes % 4.7 %; Mean Corpuscular HGB Conc 32.7 g/dL (30.0-36.0); Mean Corpuscular Hemoglobin 29.6 pg (28.0-34.0); Mean Corpuscular Volume 90.6 fL (80-94); Mean Platelet Volume 10.1 fL (7.4-10.4); Monocytes # 0.5 10^3/uL (0.2-0.9); Monocytes % 4.6 %; Neutrophils # 9.83 10^3/uL (1.8-7.7); Neutrophils % 89.7 %; Nucleated Red Blood Cells % 0 %; Platelet Count 354 10^3/cmm (130-400); Red Blood Count 3.92 10^6/uL (4.1-5.3); Red Cell Distribution Width 13.1 % (12.1-15.1)
[2021-01-24 11:50] LABS: Troponin(5th) Baseline 25 ng/L (0-15)
[2021-01-24 11:58] LABS: NT Pro B Type Natriuretic Pept 360 pg/mL (0-450); Procalcitonin 0.28 ng/mL (0-0.5)
[2021-01-24 12:09] LABS: Alanine Aminotransferase 17 U/L (0-41); Albumin Level 2.9 g/dL (3.5-5.2); Alkaline Phosphatase 56 IU/L (40-130); Aspartate Amino Transferase 12 U/L (0-40); Blood Urea Nitrogen 39 mg/dL (8-23); C Reactive Protein 116.2 mg/L (0.0-4.9); Calcium 7.9 mg/dL (8.5-10.5); Carbon Dioxide 16 mmol/L (22-29); Chloride 101 mmol/L (98-107); Creatinine Clr Calc Pharmacy 67.3303; Globulin 2.6 g/dL (1.3-4.6); Glucose 346 mg/dL (65-115); Potassium 4.8 mmol/L (3.5-5.1); Total Bilirubin 0.3 mg/dL (0.15-1.2); Total Protein 5.5 g/dL (6.6-8.7)
[2021-01-24 12:19] LABS: Anion Gap 22.8 (5-19); Sodium 135 mmol/L (136-145)
[2021-01-24 12:20] LABS: Osmolality Calculated 303 mOsm/kg (285-295)
--- NOTE | 2021-01-24 13:10 | ECG_ITS ---
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 Measurements Intervals [place] Rate: 70 P: 59 OR: 207 QRS: 3 QRSD: 111 T: 45 QT: 401 QTc: 433 Interpretive Statements SINUS RHYTHM WITH OCCASIONAL VENTRICULAR PREMATURE COMPLEXES MODERATE INTRAVENTRICULAR CONDUCTION DELAY [110+ ms QRS DURATION] Compared to ECG 01/24/2021 11:34:38 First degree AV block no longer present Electronically Signed On 01-24-2021 17:31:21 CDT by Husam Mckeon M.D. [id number]
[2021-01-24 13:53] LABS: Lactic Sepsis W/Reflex 1.3 mmol/L (0.5-2.2)
[2021-01-24 14:00] LABS: Ketone (Acetest) Serum Negative (Negative)
[2021-01-24 14:02] LABS: Troponin 5 2HR 21.85 ng/L (0-15)
[2021-01-24 14:09] LABS: Troponin 5 2HR Delta -3.15 ABS# (0-10)
--- NOTE | 2021-01-24 15:26 | CTR_ITS ---
PROCEDURE INFORMATION: Exam: CTA Chest With Contrast Exam date and time: 01/24/2021 3:26 PM Age: 85 years old Clinical indication: Shortness of breath; Additional info: Elevated d-dimer, SOB TECHNIQUE: Imaging protocol: Computed tomographic angiography of the chest with contrast. 3D rendering (Not supervised by radiologist): MIP reconstructed images were created by the technologist. Radiation optimization: All CT scans at this facility use at least one of these dose optimization techniques: automated exposure control; mA and/or kV adjustment per patient size (includes targeted exams where dose is matched to clinical indication); or iterative reconstruction. Contrast material: OMNI 350 69 ML; Contrast volume: 537.1 ml; Contrast route: INTRAVENOUS (IV); COMPARISON: CR XR chest 1V portable [id number] 01/24/2021 11:21 AM RADIATION DOSE METRICS: Total DLP (mGy-cm): 537.1 FINDINGS: Pulmonary arteries: No pulmonary artery embolism identified. Aorta: Mild aortic arch and descending thoracic aortic atherosclerotic calcification without ectasia. Thyroid: The bilateral thyroid lobes are unremarkable. Lungs: Bilateral predominantly posterior mid-lower lobe peripheral predominantly non-rounded ground-glass opacities with intralobular septal thickening, small posterior bibasilar skin solid a densities/subsegmental atelectasis. Left upper lobe calcified pulmonary parenchymal granulomas. Pleural spaces: No pneumothorax. No pleural effusion. Heart: LAD, LCx and RCA calcified coronary atherosclerosis. Lymph nodes: Right pulmonary hilar lymph node measuring 8.4 mm short axis. Bones/joints: Thoracic spine vertebral body marginal osteophytes are noted at multiple levels. Soft tissues: Unremarkable. CT/CT angio chest PE protcl [id number] IMPRESSION: 1. No pulmonary artery embolism identified. 2. Bilateral interstitial and alveolar pulmonary infiltrates. Pneumonitis, including viral pneumonitis, is difficult to exclude. Clinical correlation is recommended. 3. Coronary atherosclerosis. Radiation Dose CTDIVOL = (mGy): DLP = 537.1 (mGy-cm)
[2021-01-24 15:30] LABS: SARS Covid-2 Antigen Positive (Negative)
--- NOTE | 2021-01-24 17:10 | ECG_ITS ---
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 Measurements Intervals [place] Rate: 70 P: 67 GA: 202 QRS: 2 QRSD: 117 T: 51 QT: 399 QTc: 431 Interpretive Statements SINUS RHYTHM WITH OCCASIONAL VENTRICULAR PREMATURE COMPLEXES MODERATE INTRAVENTRICULAR CONDUCTION DELAY [110+ ms QRS DURATION] Compared to ECG 01/24/2021 11:34:38 First degree AV block no longer present Electronically Signed On 01-24-2021 17:31:36 CDT by Husam Mckeon M.D. [id number]
[2021-01-24 17:50] LABS: Troponin 5 6HR 24.59 ng/L (0-15)
[2021-01-24 17:55] LABS: Troponin 5 6HR Delta -0.41 ng/L (0-12)
--- NOTE | 2021-01-24 18:09 | P.HP_ITS ---
Providers/Chief Complaint Primary Care Provider: Juan Luis Yan DO Chief Complaint: SOB/ COVID + History of Present Illness Celestine Duong is a 85 year old male who presented today with chief complaint of worsening lethargy, fatigue and shortness of breath. Patient is stating that his symptoms started 5 to 6 days back when his got sick. He has been noticing fatigue and lethargy low-grade fever 100.0, frequent bowel movements however not loose. He decided to come to the hospital when he noticed worsening of shortness of breath, fatigue, lethargy.. He is denying nausea, vomiting, diarrhea. He is not vaccinated for COVID-19. Diagnostic work-up in the ER revealed sepsis criteria met with tachypnea, leukocytosis, D-dimer 0.7, creatinine 0.8, lactic acid normal, chest x-ray consistent with COVID-19 pneumonia Review of Systems Const: Reports: fever(s), chills, body aches, change in weight and fatigue Eyes: Denies: change in vision ENMT: Denies: throat pain Card: Reports: dyspnea on exertion and orthopnea; Denies: chest pain Resp: Reports: dyspnea and non-productive cough GI: Reports: abdominal pain and nausea : Denies: flank pain Musc: Denies: neck pain Skin/Breast: Denies: rash Neuro: Denies: headache(s) Psych: Denies: anxiety Endo: Denies: polyuria Jared/Lymph: Denies: easy bruising All/Imm: Reports: urticaria Medications/Allergies Home Medications Medication Instructions Recorded Confirmed Last Taken Type albuterol sulfate 2 inh INHALATION Q6H PRN #8 gm 01/19/21 01/24/21 Unknown Rx azithromycin See Rx Instructions .ROUTE .COMPLEX 01/24/21 01/24/21 01/23/21 History cholecalciferol (vitamin D3) 125 mcg PO DAILY 01/24/21 01/24/21 01/24/21 History [Vitamin D3] dexamethasone 6 mg PO DAILY 01/24/21 01/24/21 01/23/21 History magnesium 200 mg PO DAILY 01/24/21 01/24/21 01/24/21 History metformin 1,000 mg PO BID 01/24/21 01/24/21 01/24/21 History vitamin A-C-D3-cod liver oil 1 tab PO DAILY 01/24/21 01/24/21 01/24/21 History vitamin E 200 unit PO DAILY 01/24/21 01/24/21 01/24/21 History zinc 100 mg PO DAILY 01/24/21 01/24/21 01/24/21 History Allergies Allergy/AdvReac Type Severity Reaction Status Date / Time No Known Allergies Allergy Verified 01/18/21 20:42 PFSH Acute PFSH: Medical History Afib CKD (chronic kidney disease) Diabetes Diabetes mellitus History of amputation of left hand Paroxysmal supraventricular tachycardia Ureteral calculus, left Surgical History History of removal of ureteral stent Hx of right inguinal hernia repair Family History Father , AT AGE 83 Dementia Mother , AT AGE 87 Diabetes Social History Smoking and tobacco status: never smoked Alcohol intake: never Adopted: No Caregiver/support person: No Lives independently: No Household members: spouse Marital status: Current occupational status: retired Vitals/I&O/Wt Last Vital Signs Temp 98.0 F 01/24/21 10:53 Pulse 72 01/24/21 17:46 Resp 20 H 01/24/21 17:46 BP 132/78 01/24/21 17:46 Pulse Ox 95 01/24/21 17:46 Weight last 48 hrs Weight 68.039 kg Physical Exam Narrative: EXAM NARRATIVE: elderly male who was saturating well on 4 L nasal cannula, was laying supine Awake alert oriented x3 GCS 15 No neurological deficit Left hand amputation noted No acute neurological deficits EOMI, PERRLA S1, S2 no murmur appreciated clinically looks euvolemic Abdomen soft nontender bowel sounds present Lower extremities without any edema No joint swelling Seems lethargic and fatigued Data : 01/24/21 11:12 01/24/21 11:12 A&P Assessment and plan (1) COVID-19: Status: Acute (2) Sepsis: Status: Acute Additional A&P Information Acute hypoxic respiratory failure secondary to COVID-19 CRP 116, sepsis criteria met with tachypnea, leukocytosis, normal lactic acid High D-dimer, CTA rule out PE COVID-19 positive Requested procalcitonin Start remdesivir and Decadron Hold off on antibiotics for now Troponin with negative delta Incentive spirometry, encourage proning He is not vaccinated Would use sliding scale of insulin for steroid-induced hyperglycemia during hospitalization and hold Metformin Full code, patient would like to discuss his goals of care with his family He had A. fib for a brief few time during a hospitalization however stays in sinus rhythm DVT prophylaxis Lovenox Attestations Medical Necessity Statement*: Anticipating stay in the hospital because more than 2 midnights for hypoxia related to COVID-19 Time Spent in Patient Care: 16 - 35 minutes Coding Level of Care Code Acute Instrument Lens Generator for [place] Fwd Diagnoses COVID-19 U07.1 Sepsis A41.9
[2021-01-24 19:30] LABS: Procalcitonin 0.28 ng/mL (0-0.5)
[2021-01-24 21:25] LABS: Glucose Point of Care 446 mg/dL (70-110)
[2021-01-24] MEDS: enoxaparin 40 mg/0.4 mL Syringe SUBCUT (21:34)
[2021-01-24] MEDS: remdesivir 200 MG in sodium chloride 0.9% (100 ml) 100 ML 100 MG IV (21:34)
[2021-01-25] VITALS (10 sets, daily range): BP systolic 112–138; BP diastolic 71–84; PULSE 64–89; RESP 13–22; TEMP 36.6–37; O2SAT 87–96; BMI 19.2
--- NOTE | 2021-01-25 00:14 | PC.NURSE ---
report to Rach CHAPMAN
[2021-01-25 06:40] LABS: Glucose Point of Care 173 mg/dL (70-110)
[2021-01-25 07:15] LABS: Basophils % 0.1 %; Eosinophils % 0.1 %; Hematocrit 39.8 % (42.0-52.0); Hemoglobin 12.8 g/dL (11.7-16.6); Lymphocytes # 0.5 10^3/uL (0.8-4.8); Lymphocytes % 7.3 %; Mean Corpuscular HGB Conc 32.2 g/dL (30.0-36.0); Mean Corpuscular Hemoglobin 29.6 pg (28.0-34.0); Mean Corpuscular Volume 91.9 fL (80-94); Monocytes # 0.4 10^3/uL (0.2-0.9); Monocytes % 5.7 %; Neutrophils # 5.93 10^3/uL (1.8-7.7); Neutrophils % 85.4 %; Nucleated Red Blood Cells % 0 %; Platelet Count 353 10^3/cmm (130-400); Red Blood Count 4.33 10^6/uL (4.1-5.3); Red Cell Distribution Width 13.1 % (12.1-15.1)
[2021-01-25 07:43] LABS: Anion Gap 15.5 (5-19); Blood Urea Nitrogen 26 mg/dL (8-23); C Reactive Protein 119.9 mg/L (0.0-4.9); Calcium 8.9 mg/dL (8.5-10.5); Carbon Dioxide 22 mmol/L (22-29); Chloride 104 mmol/L (98-107); Glucose 182 mg/dL (65-115); Osmolality Calculated 293 mOsm/kg (285-295); Potassium 4.5 mmol/L (3.5-5.1); Sodium 137 mmol/L (136-145)
[2021-01-25 07:47] LABS: Creatinine Clr Calc Pharmacy 67.3303
[2021-01-25] MEDS: dexamethasone 4 mg Tablet 6 MG PO (09:27)
--- NOTE | 2021-01-25 09:46 | PM.PN ---
Subjective Subjective: Interval history: Patient was seen and examined this morning, he was saturating well on 5 L nasal cannula, overnight no events he has stayed afebrile, We will request PT evaluation, patient is endorsing feeling lethargic and fatigued He has not been able to get out of his bed and ambulate Vitals/I&O/Wt Last Vital Signs Temp 98.1 F 01/25/21 08:27 Pulse 87 01/25/21 08:27 Resp 18 01/25/21 08:27 BP 126/78 01/25/21 08:27 Pulse Ox 87 L 01/25/21 08:27 01/24/21 01/25/21 01/25/21 22:59 06:59 14:59 Intake Total 100 / 100 Output Total 700 / 700 0 / 700 Balance -700 / -700 100 / -600 Weight last 48 hrs Weight 68.039 kg Weight 68.039 kg Physical Exam Narrative: EXAM NARRATIVE: elderly male who was eating breakfast when entered the room Was saturating well on 4-5 L nasal cannula Able to answer my question appropriately No strokelike findings S1, S2, sinus rhythm no murmur appreciated Abdomen soft Lower extremity no edema Fatigued and lethargic Data : 01/25/21 05:50 01/25/21 05:50 A&P Assessment and plan (1) Sepsis: Status: Acute (2) COVID-19: Status: Acute Additional A&P Information Sepsis with COVID-19 Sepsis resolved Patient has stayed afebrile Continue remdesivir and Decadron PT evaluation today, patient is weak and lethargic not able to get up out of bed without assistance Incentive spirometry and proning Planning to discharge home in next 24 to 48 hours if safe to return home Full code Cardiac diet DVT prophylaxis Lovenox Attestations Medical Necessity Statement*: Continue medical management will need PT eval today, planning to discharge in next 48 hours Time Spent in Patient Care: less than 15 minutes Coding Level of Care Code Acute Career Guidance Counselor for [place] Fwd Diagnoses Sepsis A41.9 COVID-19 U07.1
[2021-01-25 11:33] LABS: Glucose Point of Care 219 mg/dL (70-110)
--- NOTE | 2021-01-25 14:15 | PC.NURSE ---
patients updated on patient.
[2021-01-25 16:42] LABS: Glucose Point of Care 290 mg/dL (70-110)
[2021-01-25] MEDS: remdesivir 100 MG in sodium chloride 0.9% (100 ml) 100 ML IV (17:12)
--- NOTE | 2021-01-25 18:23 | PC.NURSE ---
Shift Note Frequent safety and comfort rounds continue. Orders and/or nursing care completed as indicated. Patient monitored for response to intervention and treatment(s). Education provided r/t treatment plan, medications and physical therapy. Pt verbalizes understanding. Pt gets up on side of bed without assist to use urinal. Denies any pain or SOB. Will monitor.
[2021-01-25] MEDS: enoxaparin 40 mg/0.4 mL Syringe SUBCUT (20:30)
[2021-01-25 21:35] LABS: Glucose Point of Care 380 mg/dL (70-110)
[2021-01-26 03:28] VITALS: BP 119/71; PULSE 62; RESP 22; TEMP 36.6; O2SAT 97
[2021-01-26 05:23] VITALS: PULSE 61
--- NOTE | 2021-01-26 05:40 | PC.NURSE ---
No acute status military exchange wireless manager night. Will continue to monitor.
[2021-01-26 07:04] LABS: Glucose Point of Care 193 mg/dL (70-110)
[2021-01-26 07:05] LABS: Basophils % 0.1 %; Eosinophils % 0.2 %; Hematocrit 40.2 % (42.0-52.0); Hemoglobin 12.9 g/dL (11.7-16.6); Lymphocytes # 0.7 10^3/uL (0.8-4.8); Lymphocytes % 7.5 %; Mean Corpuscular HGB Conc 32.1 g/dL (30.0-36.0); Mean Corpuscular Hemoglobin 29.4 pg (28.0-34.0); Mean Corpuscular Volume 91.6 fL (80-94); Mean Platelet Volume 10.2 fL (7.4-10.4); Monocytes # 0.6 10^3/uL (0.2-0.9); Monocytes % 6.4 %; Neutrophils # 7.86 10^3/uL (1.8-7.7); Neutrophils % 84.8 %; Nucleated Red Blood Cells % 0 %; Platelet Count 421 10^3/cmm (130-400); Red Blood Count 4.39 10^6/uL (4.1-5.3); White Blood Count 9.3 10^3/uL (4.0-10.0)
[2021-01-26 07:27] LABS: Anion Gap 13.6 (5-19); Blood Urea Nitrogen 28 mg/dL (8-23); C Reactive Protein 118.6 mg/L (0.0-4.9); Calcium 9.2 mg/dL (8.5-10.5); Carbon Dioxide 25 mmol/L (22-29); Chloride 103 mmol/L (98-107); Glucose 185 mg/dL (65-115); Osmolality Calculated 294 mOsm/kg (285-295); Potassium 4.6 mmol/L (3.5-5.1); Sodium 137 mmol/L (136-145)
[2021-01-26 07:39] LABS: Creatinine Clr Calc Pharmacy 67.3303
[2021-01-26 08:00] VITALS: BP 120/77; PULSE 67; RESP 16; TEMP 36.6; O2SAT 94
[2021-01-26] MEDS: dexamethasone 4 mg Tablet 6 MG PO (08:43)
[2021-01-26 09:15] VITALS: PULSE 74; RESP 18; O2SAT 94
--- NOTE | 2021-01-26 10:51 | PC.CHAP ---
Pastoral Care Encounter/Spiritual Assessment Type of Contact [] Declined boatbuilder wood visit [] Patient/Family/Request visit [] Outpatient visit [] Follow-up visit [] Physician referral [] Code/Alert [x] Routine visit [] Staff referral [] Actively dying [] Patient sleeping [] Family support [] [] Out of room [] Palliative care [] [] Receiving care in room [] Pre-surgical visit [] Trauma [] Long length of stay [] ICU visit [x] Other: 2A Relational/Emotional Strength [] Patient feels connected with others/family/visitors/staff [] Distress [] Loneliness/isolation [] Abandonment Spirituality of Patient [] Person of Monica [] Attends [facility]aritan of their [place] [] Believes in Prayer [] Reads Bible or Samaritan materials [] There are Spiritual issues to be addressed Geodetic Surveyor Interventions [x] Prayer [] Active listening [] Non-anxious presence [] Spiritual/emotional support [] Crisis/trauma care [] Spiritual counseling [] Bereavement support [] Provided bereavement packet [] Provided Bible/devotional materials [] Provided toy/stuffed animal, coloring book to patient or family member [] Provided Communion [] Anointing/[place] [] Salvation [x] Completed spiritual assessment [] Other: Impact on Illness or Injury [] Angry [] Fearful [] Anxious [] Often cries [] Exhaustion [] Unable to work [] Unable to attend zoroastrianism [] Unable to walk/stand [] Unable to read [] Unable to drive [] Unable to eat/drink [] Unable to sleep [] Unable to be with family [] Patient intubated [] Other: Summary Time spent with patient
[2021-01-26 10:53] VITALS: PULSE 74; RESP 18; O2SAT 94
--- NOTE | 2021-01-26 10:53 | PC.NURSE ---
Discharge Note Patient discharged to home via w/c accompanied by spouse. Discharge instructions reviewed with patient and/or loan servicing representative. Mobile pharmacy medications and/or prescriptions provided. Belongings/home medications returned.
--- NOTE | 2021-01-26 16:25 | PM.DCS ---
Discharge Providers Date of Admission: 01/24/21 18:06 Date of Discharge: January 26, 2021 Attending Provider at Admission: Fabrizio Ray MD Attending Provider at Discharge: Fabrizio Ray MD Primary Care Provider: Juan Luis Yan DO Diagnoses at Discharge Discharge Diagnosis (1) Sepsis: Status: Acute (2) COVID-19: Status: Acute Reason for Visit Reason for Visit: SOB/ COVID + Hospital Course Hospital Course HPI Celestine Duong is a 85 year old male who presented today with chief complaint of worsening lethargy, fatigue and shortness of breath. Patient is stating that his symptoms started 5 to 6 days back when his got sick. He has been noticing fatigue and lethargy low-grade fever 100.0, frequent bowel movements however not loose. He decided to come to the hospital when he noticed worsening of shortness of breath, fatigue, lethargy.. He is denying nausea, vomiting, diarrhea. He is not vaccinated for COVID-19. Diagnostic work-up in the ER revealed sepsis criteria met with tachypnea, leukocytosis, D-dimer 0.7, creatinine 0.8, lactic acid normal, chest x-ray consistent with COVID-19 pneumonia Hospital course Patient was admitted for management of worsening hypoxia related to COVID-19 pneumonia. Patient symptoms did not improve much however his oxygen requirement stayed between 3 to 4 L, he was complaining of mild lethargy and fatigue however able to carry himself independently in the room. He has oxygen tank at home at baseline uses 2 to 3 L. He stayed afebrile no significant leukocytosis or increase of inflammatory markers. Patient was discharged on 01/26 after home O2 evaluation. Considering his muscle fatigue and lethargy I did not give him any steroid tapering regimen. He is not looking forward to get vaccinated. Family members are also sick with COVID-19 infection. Physical Exam Narrative: EXAM NARRATIVE: elderly male who was eating breakfast when entered the room Was saturating well on 3 L nasal cannula Able to answer my question appropriately No strokelike findings S1, S2, sinus rhythm no murmur appreciated Abdomen soft Lower extremity no edema Fatigued and lethargic Discharge Data Data Completed and Pending: Completed Studies During Hospitalization Category Date Time Status CT angio chest PE protcl [id number] Urge nt Cat Scan 08/09/21 15:26 Completed XR chest 1V trae ble [id number] Urgent Exams 01/24/21 11:09 Completed Labs from last 24 hours 01/26/21 01/26/21 01/26/21 06:28 06:11 06:11 WBC 9.3 RBC 4.39 Hgb 12.9 Hct 40.2 L MCV 91.6 MCH 29.4 MCHC 32.1 RDW 13.0 Plt Count 421 H MPV 10.2 Neut % (Auto) 84.8 Lymph % (Auto) 7.5 Benzie % (Auto) 6.4 Eos % (Auto) 0.2 Baso % (Auto) 0.1 Neut # (Auto) 7.86 H Lymph # (Auto) 0.7 L Benzie # (Auto) 0.6 Eos # (Auto) 0.0 Baso # (Auto) 0.0 Nucleated RBC % (a uto) 0 Nucleated RBCs # 0.0 Sodium 137 Potassium 4.6 Chloride 103 Carbon Dioxide 25 Anion Gap 13.6 BUN 28 H Creatinine 0.6 L GFR Calculation Not Reportable Glucose 185 H POC Glucose 193 H Calculated Osmolal ity 294 Calcium 9.2 C-Reactive Protein 118.6 H 01/25/21 01/25/21 20:40 16:38 WBC RBC Hgb Hct MCV MCH MCHC RDW Plt Count MPV Neut % (Auto) Lymph % (Auto) Benzie % (Auto) Eos % (Auto) Baso % (Auto) Neut # (Auto) Lymph # (Auto) Benzie # (Auto) Eos # (Auto) Baso # (Auto) Nucleated RBC % (a uto) Nucleated RBCs # Sodium Potassium Chloride Carbon Dioxide Anion Gap BUN Creatinine GFR Calculation Glucose POC Glucose 380 H 290 H Calculated Osmolal ity Calcium C-Reactive Protein Vitals: Last Vital Signs Temp 97.8 F 01/26/21 08:00 Pulse 74 01/26/21 10:53 Resp 18 01/26/21 10:53 BP 120/77 01/26/21 08:00 Pulse Ox 94 01/26/21 10:53 Discharge Plan Discharge Patient Disposition: Home Condition: Stable Prescriptions: Continued albuterol sulfate 90 mcg/actuation HFA aerosol inhaler 2 inh INHALATION Q6H PRN (Reason: shortness of breath or wheezing) Qty: 8 RF: 0 azithromycin 250 mg tablet See Rx Instructions .ROUTE .COMPLEX RF: 0 metformin 1,000 mg tablet 1,000 mg PO BID RF: 0 zinc 100 mg Tablet 100 mg PO DAILY RF: 0 vitamin E 200 unit Tablet 200 unit PO DAILY RF: 0 magnesium 200 mg Tablet 200 mg PO DAILY RF: 0 vitamin A-C-D3-cod liver oil 4,000-50-200 dylm-av-wryh Tablet,Chewable 1 tab PO DAILY RF: 0 Vitamin D3 125 mcg (5,000 unit) Tablet 125 mcg PO DAILY RF: 0 dexamethasone 4 mg tablet 6 mg PO DAILY 5 Days Qty: 5 RF: 0 Discharge Orders: Discharge Order (Routine); Ordered 01/26/21 Ordered By: Fabrizio Ray Other Ambulatory Orders: DME: Cane/ Crutches (Order) Location: None Selected Ordered By: Fabrizio Ray Referrals: Juan Luis Yan DO [Primary Care Provider] - 7-10 days (Follow up with Dr. Yan 02-02-21 at 0940. ) Discharge Diet: Cardiac Discharge Activity: Increase activity as tolerated Patient Instructions: Viral Pneumonia (DC), Hyponatremia (DC), Sepsis (DC), Opioid Safety Activity Restrictions/Additional Instructions: You can titrate oxygen between 2 to 5 L at home and if you are requiring more oxygen and experiencing worsening of shortness of breath please come to the ED for further evaluation, Discharge Attestations Time Spent in Discharge Care*: less than 30 min Quality Metrics Clinical Quality Measures During this hospital stay, did patient experience: None Coding Level of Care Code Acute Chg FW DC note Diagnoses Sepsis A41.9 COVID-19 U07.1
--- NOTE | 2021-01-31 13:39 | PC.SOCIAL ---
discharge follow up appointment made. spoke with spouse. patient is continuing to use 2L NC O2, sats 91%. patient has follow up with Dr. Yan 8-18. no new medications prescribed at discharge.
== END 2021-01-26 10:54 | disposition home or self-care (01) | DRG 871 ==
LOC: ER 16:59 → ER IP 01-25 07:46 → MS 2A 01-25 07:46
PROVIDERS: Admitting Provider Internal Medicine; Emergency Provider Emergency Medicine; PCP Electrodiagnostic Medicine; Visit Provider Internal Medicine
DX: A41.89 Other specified sepsis (principal); U07.1 COVID-19; J12.82 Pneumonia due to coronavirus disease 2019; E87.1 Hypo-osmolality and hyponatremia; R09.02 Hypoxemia; N18.9 Chronic kidney disease, unspecified; E11.22 Type 2 diabetes mellitus with diabetic chronic kidney disease; Z83.3 Family history of diabetes mellitus; Z89.112 Acquired absence of left hand
CPT/HCPCS: 36415; 36416; 71045; 71275; 80048; 80053; 82009; 82962; 83605; 83880; 84145; 84484; 85025; 85378; 86140; 87426; 93005; 96365; 96372; 97116; 97161; 99285; J1650; J1815; J8540; Q9967

== ENCOUNTER 2022-02-01 07:04 | Outpatient (CLI) | payer MEDICARE, OTHER, SELFPAY ==
--- NOTE | 2022-02-01 07:20 | XR_ITS ---
WS: [id number], AP view, 02/01/2022 Clinical Data: Urolithiasis Comparison: [facility], 10/30/2018. Findings: No abnormal intraabdominal masses or calcifications are seen. There is no dilatated small bowel or ev idence of obstruction. There is a large amount of fecal material and bowel gas throughout the colon. There are phleboliths i n the true pelvis. Vascular calcification is present. 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 XR/XR KUB [id number] Impression: Moderate generalized ileus.
== END 2022-02-01 07:05 | disposition home or self-care (01) ==
LOC: RAD 07:04
PROVIDERS: PCP Electrodiagnostic Medicine; Visit Provider Nurse Practitioner Family
DX: N20.9 Urinary calculus, unspecified (principal); K56.7 Ileus, unspecified; N40.1 Benign prostatic hyperplasia with lower urinary tract symptoms
CPT/HCPCS: 51741; 51798; 74018; 99203

== ENCOUNTER → 2022-02-06 12:05 | Outpatient (BNVA) | payer MEDICARE, OTHER, SELFPAY | PROVIDERS: PCP Electrodiagnostic Medicine; Visit Provider Nurse Practitioner Family | DX: N20.9 Urinary calculus, unspecified (principal); N40.1 Benign prostatic hyperplasia with lower urinary tract symptoms | CPT/HCPCS: 81003 ==

== ENCOUNTER → 2022-03-09 13:05 | Outpatient (BNVA) | payer MEDICARE, OTHER, SELFPAY | PROVIDERS: PCP Electrodiagnostic Medicine; Visit Provider Urology | DX: N40.1 Benign prostatic hyperplasia with lower urinary tract symptoms (principal); N20.9 Urinary calculus, unspecified; R35.81 Nocturnal polyuria | CPT/HCPCS: 51741; 51798; 99213 ==

== ENCOUNTER → 2022-03-13 09:28 | Outpatient (BNVA) | payer MEDICARE, OTHER, SELFPAY | PROVIDERS: PCP Electrodiagnostic Medicine; Visit Provider Urology | DX: N40.1 Benign prostatic hyperplasia with lower urinary tract symptoms (principal); N20.9 Urinary calculus, unspecified; R35.81 Nocturnal polyuria | CPT/HCPCS: 81003 ==

== ENCOUNTER 2024-06-29 16:07 | Observation (INO) | payer MEDICARE, OTHER, SELFPAY ==
[2024-06-29] VITALS (23 sets, daily range): BP systolic 157–207; BP diastolic 84–136; PULSE 59–78; RESP 12–23; TEMP 36.6–36.8; O2SAT 90–97; BMI 22.3
--- NOTE | 2024-06-29 16:10 | CTR_ITS ---
PROCEDURE INFORMATION: Exam: CT Head Without Contrast Exam date and time: 06/29/2024 4:17 PM Age: 88 years old Clinical indication: Stroke-like symptoms; Headache; Additional info: Symptoms of acute stroke TECHNIQUE: Imaging protocol: Computed tomography of the head without contrast. Radiation optimization: All CT scans at this facility use at least one of these dose optimization techniques: automated exposure control; mA and/or kV adjustment per patient size (includes targeted exams where dose is matched to clinical indication); or iterative reconstruction. Other technique: STROKE PROTOCOL was implemented. COMPARISON: No relevant prior studies available. RADIATION DOSE METRICS: Total DLP (mGy-cm): 1108.88 FINDINGS: Brain: Normal. No hemorrhage. Bilateral ill-defined periventricular hypodensities consistent with moderate chronic microvascular white matter ischemic changes. Subcortical hypodensity along the high left aden radiata likely representing chronic micro ischemic vascular changes Cerebral ventricles: Age-related diffuse cortical atrophic changes with compensatory ventricular dilatation. Paranasal sinuses: Visualized sinuses are unremarkable. No fluid levels. Mastoid air cells: Visualized mastoid air cells are well aerated. Bones: Unremarkable. No acute fracture. Soft tissues: Unremarkable. CT/CT head thrombolytic [id number] IMPRESSION: No acute intracranial abnormality. ASSESSMENT: ASPECTS ([place] Stroke Program Early CT Score) is 10.
--- NOTE | 2024-06-29 16:10 | XRR_ITS ---
PROCEDURE INFORMATION: Exam: XR Chest Exam date and time: 06/29/2024 4:22 PM Age: 88 years old Clinical indication: Patient HX: CVA; AMS; Slurred speech; Lt headache; Dizziness; Weakness TECHNIQUE: Imaging protocol: Radiologic exam of the chest. Views: 1 view. COMPARISON: CT angio chest PE protcl [id number] 01/24/2021 3:58 PM FINDINGS: Lungs: Unremarkable. No consolidation. Pleural spaces: Unremarkable. No pleural effusion. No pneumothorax. Heart/Mediastinum: Unremarkable. No cardiomegaly. Bones/joints: Unremarkable. XR/XR chest 1V portable [id number] IMPRESSION: No acute findings.
[2024-06-29 16:17] LABS: Glucose Point of Care 140 mg/dL (70-110)
--- NOTE | 2024-06-29 16:22 | ED_ITS ---
HPI - Neuro Symptoms/Deficit 2 General: Chief Complaint: Neuro Symptoms/Deficit Stated Complaint: slurring speech, confusion @ 2 pm Time Seen by Provider: 06/29/24 16:09 Source: patient and family Mode of arrival: ambulatory Limitations: no limitations History of Present Illness: 88-year-old male who family states that today at 2 he started having some confusion and slurred speech along with difficulty walking. States that since his symptoms have completely resolved patient here is answer my questions appropriately he had walked to the room he is unsure of exact what happened he denies any headache denies any chest pain. Associated symptoms: Deny chest pain, headache(s), nausea or vomiting Related Data Home Medications Medication Instructions Recorded Confirmed azithromycin 250 mg tablet See Rx Instructions .Route .COMPLEX 01/24/21 03/09/22 cholecalciferol (vitamin D3) 125 125 mcg PO DAILY 01/24/21 03/09/22 mcg (5,000 unit) tablet (Vitamin D3) magnesium 200 mg tablet 200 mg PO DAILY 01/24/21 03/09/22 metformin 1,000 mg tablet 1,000 mg PO BID 01/24/21 03/09/22 vitamin A-C-D3-cod liver oil 4,000 1 tab PO DAILY 01/24/21 03/09/22 unit-50 mg-200 unit chewable tablet vitamin E 200 unit tablet 200 unit PO DAILY 01/24/21 03/09/22 zinc 100 mg tablet 100 mg PO DAILY 01/24/21 03/09/22 tamsulosin 0.4 mg capsule 0.4 mg PO BID 02/01/22 03/09/22 lisinopril 5 mg tablet 5 mg PO DAILY 03/09/22 03/09/22 metformin 1,000 mg tablet 1,000 mg PO BID 03/09/22 03/09/22 prostate support health PO 03/09/22 Previous Rx's Medication Instructions Recorded albuterol sulfate 90 mcg/actuation 2 inh inhalation Q6H PRN shortness 01/19/21 aerosol inhaler of breath or wheezing #8 grams dexamethasone 4 mg tablet 6 mg (1.5 x 4 mg) PO DAILY 5 days 01/26/21 #5 tabs Allergies Allergy/AdvReac Type Severity Reaction Status Date / Time No Known Allergies Allergy Verified 03/09/22 13:15 Review of Systems 2 Const: Denies: fever(s), chills, body aches or change in appetite Eyes: Denies: blurry vision or eye discomfort ENMT: Denies: throat pain or dental pain Card: Denies: chest pain Resp: Denies: dyspnea GI: Denies: abdominal pain, nausea, vomiting or diarrhea Musc: Denies: neck pain or back pain Skin/Breast: Denies: rash Neuro: Reports: difficulty walking, confusion and Slurred speech present; Denies: headache(s) PFSH ED 2 PFSH: Medical History Nocturnal polyuria Urolithiasis Ureteral calculus, left Afib Diabetes Paroxysmal supraventricular tachycardia CKD (chronic kidney disease) Diabetes mellitus COVID-19 Surgical History Hx of right inguinal hernia repair History of amputation of left hand History of removal of ureteral stent Family History Father , AT AGE 83 Dementia Mother , AT AGE 87 Diabetes Social History Smoking and tobacco/nicotine status: never used tobacco/nicotine Alcohol intake: current Alcohol intake frequency: holidays/special occasions only Alcohol type: wine Substance/Drug Use: unknown Adopted: No Caregiver/support person: No Lives independently: No Household members: spouse Marital status: Current occupational status: retired NIH stroke score 2 NIHSS: Level Of Consciousness - 1a: 0 Level Of Consciousness Questions - 1b: Both Correct Level Of Consciousness Commands - 1c: Both Correct Best Gaze - 2: Normal Visual Childs - 3: No Visual Loss Facial Palsy - 4: N ormal Motor Arm Right - 5: No Drift Motor Arm Left - 5: No Drift Motor Leg Right - 6: No Drift Motor Leg Left - 6: No Drift Limb Ataxia - 7: A bsent Sensory - 8: Normal Best Language - 9: No Aphasia Dysarthia - 10: Normal Extinction And Inattention - 11: 0 Score: Total Score: 0 Physical Exam 2 Const: COMMON NORMALS: no acute distress, patient oriented x3 and healthy appearing HENMT: COMMON NORMALS: normocephalic and atraumatic HEAD & SCALP: n ormocephalic and atraumatic Eye: COMMON NORMALS: Equal, round and reactive pupils present and EOMs intact bilaterally PUPIL: Yes Equal, round and reactive pupils present Neck/C-Spine: COMMON NORMALS: full ROM and supple Chest: COMMONS NORMALS: normal inspection of the chest Resp: COMMON NORMALS: normal respiratory effort, No retractions, No use of accessory muscles and clear to auscultation bilaterally AUSCULTATION: clear to auscultation bilaterally Cardio: COMMON NORMALS: regular rate, regular rhythm and No murmurs present (Cardio) RATE: regular rate RHYTHM: regular rhythm Extremity: COMMON NORMALS: normal to inspection and full ROM Neuro: COMMON NORMALS: patient oriented x3, moves all extremities and no focal motor deficits CRANIAL NERVES: Yes CN normal except as noted SPEECH: s peech normal GAIT: Yes Normal gait present MOTOR EXAM: 5/5 motor strength present throughout Psych: COMMON NORMALS: mental status grossly normal, Normal thought process present and cooperative THOUGHT PROCESS: Normal thought process present Skin: COMMON NORMALS: no rashes or lesions noted and no wounds GENERAL SKIN EXAM: no rashes or lesions noted Course 2 Vital Signs: Vital signs: Vital Signs Temperature 98.2 F 06/29/24 16:13 Pulse Rate 75 06/29/24 16:13 Respiratory Rate 12 06/29/24 16:13 Blood Pressure 207/109 06/29/24 16:13 Pulse Oximetry 95 06/29/24 16:13 Oxygen Delivery Me thod Room Air 06/29/24 16:13 MDM - Neuro Symptoms/Deficit Medical Decision Making Patient presents here with a TIA symptoms have completely resolved he is not a lytic candidate due to the resolution of his symptoms head CT is normal I spoke to the hospitalist will admit for observation. Medical Records I reviewed the patient's medical records. Lab Data I reviewed the patient's lab results. 06/29/24 16:16 06/29/24 16:16 Radiology Impressions Chest X-Ray 06/29/24 16:10 IMPRESSION: No acute findings. Head CT 06/29/24 16:10 IMPRESSION: No acute intracranial abnormality. ASSESSMENT: ASPECTS ([place] Stroke Program Early CT Score) is 10. ADDENDUM: 06/29/24 0317 The findings were verbally communicated via telephone conference with LINDSAY Hebert at 4:31 PM DIE EQUIPMENT OPERATOR on 06/29/2024. The findings were acknowledged and understood. Laboratory Results WBC 6.22 10^3/uL (3.29-11.43) 06/29/24 16:16 RBC 4.21 10^6/uL (3.85-5.65) 06/29/24 16:16 Hgb 12.60 g/dL (11.27-16.99) 06/29/24 16:16 Hct 39.6 % (37-53) 06/29/24 16:16 MCV 94.1 fl (82-101) 06/29/24 16:16 MCH 29.9 pg (27-33) 06/29/24 16:16 MCHC 31.8 g/dL (30-55) 06/29/24 16:16 RDW 12.9 % (12.1-15.1) 06/29/24 16:16 Plt Count 238 10^3/cmm (157-399) 06/29/24 16:16 MPV 10.1 fL (7.4-10.4) 06/29/24 16:16 Neut % (Auto) 65.6 % 06/29/24 16:16 Lymph % (Auto) 22.8 % 06/29/24 16:16 [place] % (Auto) 8.7 % 06/29/24 16:16 Eos % (Auto) 2.4 % 06/29/24 16:16 Baso % (Auto) 0.3 % 06/29/24 16:16 Neut # (Auto) 4.08 10^3/uL (1.8-7.7) 06/29/24 16:16 Lymph # (Auto) 1.4 10^3/uL (0.8-4.8) 06/29/24 16:16 [place] # (Auto) 0.5 10^3/uL (0.2-0.9) 06/29/24 16:16 Eos # (Auto) 0.2 10^3/uL (0.0-0.8) 06/29/24 16:16 Baso # (Auto) 0.0 10^3/uL (0.0-0.1) 06/29/24 16:16 Nucleated RBC % (auto) 0 % 06/29/24 16:16 Nucleated RBCs # 0.0 /100WBC 06/29/24 16:16 PT 11.60 SECONDS (12.1-14.9) L 06/29/24 16:16 INR 0.79 (0.8-1.2) L 06/29/24 16:16 APTT 21.9 SECONDS (23.9-36.7) L 06/29/24 16:16 Sodium 138 mmol/L (136-145) 06/29/24 16:16 Potassium 4.8 mmol/L (3.5-5.1) 06/29/24 16:16 Chloride 103 mmol/L (98-107) 06/29/24 16:16 Carbon Dioxide 23 mmol/L (22-29) 06/29/24 16:16 Anion Gap 16.8 (5-19) 06/29/24 16:16 BUN 16 mg/dL (8-23) 06/29/24 16:16 Creatinine 0.9 mg/dL (0.7-1.2) 06/29/24 16:16 GFR Calculation Not Reportable 06/29/24 16:16 Glucose 142 mg/dL (65-115) H 06/29/24 16:16 POC Glucose 140 mg/dL (70-110) H 06/29/24 16:15 Calculated Osmolality 290 mOsm/kg (285-295) 06/29/24 16:16 Calcium 9.0 mg/dL (8.5-10.5) 06/29/24 16:16 Total Bilirubin 0.2 mg/dL (0.15-1.2) 06/29/24 16:16 AST 18 U/L (0-40) 06/29/24 16:16 ALT 20 U/L (0-41) 06/29/24 16:16 Alkaline Phosphatase 96 U/L (40-130) 06/29/24 16:16 Total Protein 6.3 g/dL (6.6-8.7) L 06/29/24 16:16 Albumin 4.1 g/dL (3.5-5.2) 06/29/24 16:16 Globulin 2.2 g/dL (1.3-4.6) 06/29/24 16:16 Urine Color Yellow (Yellow) 06/29/24 17:35 Urine Appearance Clear (CLEAR) 06/29/24 17:35 Urine pH 6.0 (5-7) 06/29/24 17:35 Ur Specific [place] 1.014 (1.005-1.030) 06/29/24 17:35 Urine Protein 1+ (Negative) A 06/29/24 17:35 Urine Glucose (UA) Negative (Normal) 06/29/24 17:35 Urine Ketones Negative (Negative) 06/29/24 17:35 Urine Blood Negative (Negative) 06/29/24 17:35 Urine Nitrate Negative (Negative) 06/29/24 17:35 Urine Bilirubin Negative (Negative) 06/29/24 17:35 Urine Urobilinogen 0.2 mg/dL (Negative) 06/29/24 17:35 Ur Leukocyte Esterase Negative (Negative) 06/29/24 17:35 Amorphous Sediment Not Reportable 06/29/24 17:35 All radiology interpretation(s) finalized by discharge EKG Data EKG 1: I personally reviewed and interpreted this EKG as follows: EKG interpretation date: 06/29/24 EKG interpretation time: 16:23 Interpretation: nsr hr [address] or t wave abnormalities qrs 104 qtc 416 Discharge Plan Discharge Condition: Stable Prescriptions: No Action metformin 1,000 mg tablet 1,000 mg PO BID lisinopril 5 mg tablet 5 mg PO DAILY prostate support health PO tamsulosin 0.4 mg capsule 0.4 mg PO BID albuterol sulfate 90 mcg/actuation HFA aerosol inhaler 2 inh INHALATION Q6H PRN (Reason: shortness of breath or wheezing) Qty: 8 0RF azithromycin 250 mg tablet See Rx Instructions .ROUTE .COMPLEX Rx Instructions: 250 mg orally, TAKE DIRECTED metformin 1,000 mg tablet 1,000 mg PO BID zinc 100 mg Tablet 100 mg PO DAILY vitamin E 200 unit Tablet 200 unit PO DAILY magnesium 200 mg Tablet 200 mg PO DAILY vitamin A-C-D3-cod liver oil 4,000-50-200 wtsi-wo-ponh Tablet,Chewable 1 tab PO DAILY Vitamin D3 125 mcg (5,000 unit) Tablet 125 mcg PO DAILY dexamethasone 4 mg tablet 6 mg PO DAILY 5 Days Qty: 5 0RF Rx Instructions: TAKE 1 AND 1/2 TAB DAILY Coding Level of Care Code ED Rn Social Services for Gwendolyn Lees
--- NOTE | 2024-06-29 16:23 | ECG_ITS ---
[facility] Test Date: 2024-06-29 Pat Name: Celestine Duong Department: Room: Gender: Male Orthopaedic Surgeon: : [id number] Requested By: Pascual Landis Order Number: [id number] MD: Rosi Cardoso M.D. Measurements Intervals [place] Rate: 68 P: 52 [place]: 215 QRS: 15 QRSD: 104 T: 34 QT: 400 QTc: 425 Interpretive Statements SINUS RHYTHM WITH FIRST DEGREE AV BLOCK Compared to ECG 01/24/2021 14:53:49 First degree AV block now present Ventricular premature complex(es) no longer present Intraventricular conduction delay no longer present Electronically Signed On 07-01-2024 23:48:41 SERVICE ATTENDANT by Rosi Cardoso M.D. [email or web address]
[2024-06-29 16:34] LABS: Basophils % 0.3 %; Eosinophils # 0.2 10^3/uL (0.0-0.8); Eosinophils % 2.4 %; Hematocrit 39.6 % (37-53); Lymphocytes # 1.4 10^3/uL (0.8-4.8); Lymphocytes % 22.8 %; Mean Corpuscular HGB Conc 31.8 g/dL (30-55); Mean Corpuscular Hemoglobin 29.9 pg (27-33); Mean Corpuscular Volume 94.1 fl (82-101); Mean Platelet Volume 10.1 fL (7.4-10.4); Monocytes # 0.5 10^3/uL (0.2-0.9); Monocytes % 8.7 %; Neutrophils # 4.08 10^3/uL (1.8-7.7); Neutrophils % 65.6 %; Nucleated Red Blood Cells % 0 %; Platelet Count 238 10^3/cmm (157-399); Red Blood Count 4.21 10^6/uL (3.85-5.65); Red Cell Distribution Width 12.9 % (12.1-15.1); White Blood Count 6.22 10^3/uL (3.29-11.43)
[2024-06-29 16:48] LABS: INR 0.79 (0.8-1.2)
[2024-06-29 16:49] LABS: Partial Thromboplastin Time 21.9 SECONDS (23.9-36.7)
[2024-06-29 16:54] LABS: Alanine Aminotransferase 20 U/L (0-41); Albumin Level 4.1 g/dL (3.5-5.2); Alkaline Phosphatase 96 U/L (40-130); Anion Gap 16.8 (5-19); Aspartate Amino Transferase 18 U/L (0-40); Blood Urea Nitrogen 16 mg/dL (8-23); Carbon Dioxide 23 mmol/L (22-29); Chloride 103 mmol/L (98-107); Creatinine Clr Calc Pharmacy 67.4083; Globulin 2.2 g/dL (1.3-4.6); Glucose 142 mg/dL (65-115); Osmolality Calculated 290 mOsm/kg (285-295); Potassium 4.8 mmol/L (3.5-5.1); Sodium 138 mmol/L (136-145); Total Bilirubin 0.2 mg/dL (0.15-1.2); Total Protein 6.3 g/dL (6.6-8.7)
[2024-06-29 17:57] LABS: Bilirubin Urine Negative (Negative); Blood Urine Negative (Negative); Glucose Urine UA Negative (Normal); Ketones Urine Negative (Negative); Leukocyte Esterase Urine Negative (Negative); Nitrate Urine Negative (Negative); Protein Urine 1+ (Negative); Specific Gravity, Urine 1.014 (1.005-1.030); Urine Appearance Clear (CLEAR); Urine Color Yellow (Yellow); Urobilinogen Urine 0.2 mg/dL (Negative)
[2024-06-29 18:02] LABS: Add Urine Microscopic? YES; Bacteria Urine None Seen /hpf; Hyaline Casts Urine 0-4 /lpf; RBC Urine 0-2 /hpf (0-2); Squamous Epithelial Cell Urine 0-5 /hpf (0-5); WBC Urine 0-5 /hpf (0-5)
[2024-06-29 18:06] LABS: Amphetamines Screen Urine Negative (Negative); Barbiturates Screen Urine Negative (Negative); Benzodiazepines Screen Urine Negative (Negative); Cocaine Screen Urine Negative (Negative); Opiate Screen Urine Negative (Negative); PCP Screen Urine Negative (Negative); THC Screen Urine Negative (Negative)
--- NOTE | 2024-06-29 19:17 | P.HP_ITS ---
Providers/Chief Complaint 2 Admitting Physician: Robyn Watson MD Primary Care Provider: Juan Luis Yan DO Chief Complaint: slurring speech, confusion @ 2 pm History of Present Illness Celestine Duong is a 88 year old male with a known history of diabetes mellitus, discontinued metformin about 2 years ago due to GI side effects. Last A1c reported to be at 7.0, history of hypertension, does not typically take medication, systolic blood pressure ranges 140 usually. He is brought to the emergency room today with chief complaints of acute onset weakness, confusion and dysarthria that started at around 2 PM today. Symptoms resolved spontaneously within about 15 minutes. He denies any chest pain, dyspnea palpitations or syncope at the time. Patient reports a history of transient A-fib that was detected 6 to 7 years ago. It was attributed to dehydration at that time. He did not have a Holter monitor placed or any further investigations thereafter. States he has not had any issues. He reports a history of palpitations in the at which time a Holter monitor was placed. He states that he was never diagnosed with any A-fib. His symptoms were thought to be related to smoking and spring pesticide spray. He quit smoking since then. He has never formally been diagnosed with any arrhythmias. No history of CAD. No history of stroke in the past. Review of Systems 2 General: Reports: 10 or more systems reviewed and unremarkable except in HPI and below Const: Denies: fever(s), chills or body aches Eyes: Denies: change in vision, blurry vision or photophobia ENMT: Reports: hoarseness; Denies: throat pain, enlarged tonsils, odynophagia or nasal congestion Card: Denies: chest pain, palpitations, irregular heart rhythm, edema, swelling of feet/ankles, lightheadedness, pre-syncope, dyspnea on exertion or orthopnea Resp: Denies: dyspnea, productive cough, non-productive cough, wheezing, stridor, pain on inspiration, change in phlegm color, hemoptysis or chest congestion GI: Denies: abdominal pain, nausea, vomiting, hematemesis, coffee ground emesis, dysphagia, heartburn, diarrhea, constipation, GI cramping, change in stool character, hematochezia or melena : Denies: flank pain, dysuria, urinary frequency, urinary urgency, urinary hesitancy or hematuria Musc: Denies: neck pain, back pain, extremity pain, joint swelling, joint warmth or deformity Neuro: Denies: headache(s), numbness in extremities, weakness in extremities, sensory changes, difficulty walking, frequent falls, dizziness, vertigo, behavioral changes, Slurred speech present or seizure-like activity Psych: Denies: anxiety, depression, suicidal ideation or homicidal ideation Endo: Denies: polyuria, polydipsia, tired all the time, cold intolerance or hot flashes Jared/Lymph: Denies: easy bruising or easy bleeding Medications/Allergies Home Medications Medication Instructions Recorded Confirmed Last Taken Type albuterol sulfate 90 mcg/actuation 2 inh inhalation Q6H PRN shortness 01/19/21 03/09/22 Unknown Rx aerosol inhaler of breath or wheezing #8 grams azithromycin 250 mg tablet See Rx Instructions .Route .COMPLEX 01/24/21 03/09/22 01/23/21 History cholecalciferol (vitamin D3) 125 125 mcg PO DAILY 01/24/21 03/09/22 01/24/21 History mcg (5,000 unit) tablet (Vitamin D3) magnesium 200 mg tablet 200 mg PO DAILY 01/24/21 03/09/22 01/24/21 History metformin 1,000 mg tablet 1,000 mg PO BID 01/24/21 03/09/22 01/24/21 History vitamin A-C-D3-cod liver oil 4,000 1 tab PO DAILY 01/24/21 03/09/22 01/24/21 History unit-50 mg-200 unit chewable tablet vitamin E 200 unit tablet 200 unit PO DAILY 01/24/21 03/09/22 01/24/21 History zinc 100 mg tablet 100 mg PO DAILY 01/24/21 03/09/22 01/24/21 History dexamethasone 4 mg tablet 6 mg (1.5 x 4 mg) PO DAILY 5 days 01/26/21 03/09/22 01/23/21 Rx #5 tabs tamsulosin 0.4 mg capsule 0.4 mg PO BID 02/01/22 03/09/22 Unknown History lisinopril 5 mg tablet 5 mg PO DAILY 03/09/22 03/09/22 Unknown History metformin 1,000 mg tablet 1,000 mg PO BID 03/09/22 03/09/22 Unknown History prostate support health PO 03/09/22 Unknown History Allergies Allergy/AdvReac Type Severity Reaction Status Date / Time No Known Allergies Allergy Verified 03/09/22 13:15 PFSH Acute 2 PFSH: Medical History Nocturnal polyuria Urolithiasis Ureteral calculus, left Afib Diabetes Paroxysmal supraventricular tachycardia CKD (chronic kidney disease) Diabetes mellitus COVID-19 Surgical History Hx of right inguinal hernia repair History of amputation of left hand History of removal of ureteral stent Family History Father , AT AGE 83 Dementia Mother , AT AGE 87 Diabetes Social History Smoking and tobacco/nicotine status: never used tobacco/nicotine Alcohol intake: current Alcohol intake frequency: holidays/special occasions only Alcohol type: wine Substance/Drug Use: unknown Adopted: No Caregiver/support person: No Lives independently: No Household members: spouse Marital status: Current occupational status: retired Vitals/I&O/Wt Last Vital Signs Temp 98.2 F 06/29/24 16:13 Pulse 62 06/29/24 18:50 Resp 18 06/29/24 18:50 BP 171/85 06/29/24 18:50 Pulse Ox 95 06/29/24 18:50 O2 Del Method Room Air 06/29/24 16:13 06/29/24 06/29/24 06/29/24 06:59 14:59 22:59 Intake Total 0 / 0 Balance 0 / 0 Weight last 48 hrs Weight 78.925 kg Physical Exam 2 Narrative: General: No acute distress, AO x3 HEENT: PERRLA, pupils bilaterally equal and reactive, pallors not present Chest: Normal vesicular breath sounds, no added sounds, equal good air entry bilaterally CVS: S1-S2 regular, no murmurs, no tachycardia, no gallops, no rubs Abdomen: Soft, nontender, no organomegaly, bowel sounds present Neuro: No focal deficits, no facial deformity, AO x3, power 5/5 in all limbs Extremities: Status post amputation remotely of the left hand. Data 06/29/24 16:16 06/29/24 16:16 Other Labs: Radiology Impressions Chest X-Ray 06/29/24 16:10 IMPRESSION: No acute findings. Head CT 06/29/24 16:10 IMPRESSION: No acute intracranial abnormality. ASSESSMENT: ASPECTS ([place] Stroke Program Early CT Score) is 10. ADDENDUM: 06/29/24 3919 The findings were verbally communicated via telephone conference with LINDSAY Hebert at 4:31 PM WET CLEANER MACHINE on 06/29/2024. The findings were acknowledged and understood. Laboratory Results WBC 6.22 10^3/uL (3.29-11.43) 06/29/24 16:16 RBC 4.21 10^6/uL (3.85-5.65) 06/29/24 16:16 Hgb 12.60 g/dL (11.27-16.99) 06/29/24 16:16 Hct 39.6 % (37-53) 06/29/24 16:16 MCV 94.1 fl (82-101) 06/29/24 16:16 MCH 29.9 pg (27-33) 06/29/24 16:16 MCHC 31.8 g/dL (30-55) 06/29/24 16:16 RDW 12.9 % (12.1-15.1) 06/29/24 16:16 Plt Count 238 10^3/cmm (157-399) 06/29/24 16:16 MPV 10.1 fL (7.4-10.4) 06/29/24 16:16 Neut % (Auto) 65.6 % 06/29/24 16:16 Lymph % (Auto) 22.8 % 06/29/24 16:16 [place] % (Auto) 8.7 % 06/29/24 16:16 Eos % (Auto) 2.4 % 06/29/24 16:16 Baso % (Auto) 0.3 % 06/29/24 16:16 Neut # (Auto) 4.08 10^3/uL (1.8-7.7) 06/29/24 16:16 Lymph # (Auto) 1.4 10^3/uL (0.8-4.8) 06/29/24 16:16 Cameron # (Auto) 0.5 10^3/uL (0.2-0.9) 06/29/24 16:16 Eos # (Auto) 0.2 10^3/uL (0.0-0.8) 06/29/24 16:16 Baso # (Auto) 0.0 10^3/uL (0.0-0.1) 06/29/24 16:16 Nucleated RBC % (auto) 0 % 06/29/24 16:16 Nucleated RBCs # 0.0 /100WBC 06/29/24 16:16 PT 11.60 SECONDS (12.1-14.9) L 06/29/24 16:16 INR 0.79 (0.8-1.2) L 06/29/24 16:16 APTT 21.9 SECONDS (23.9-36.7) L 06/29/24 16:16 Sodium 138 mmol/L (136-145) 06/29/24 16:16 Potassium 4.8 mmol/L (3.5-5.1) 06/29/24 16:16 Chloride 103 mmol/L (98-107) 06/29/24 16:16 Carbon Dioxide 23 mmol/L (22-29) 06/29/24 16:16 Anion Gap 16.8 (5-19) 06/29/24 16:16 BUN 16 mg/dL (8-23) 06/29/24 16:16 Creatinine 0.9 mg/dL (0.7-1.2) 06/29/24 16:16 GFR Calculation Not Reportable 06/29/24 16:16 Glucose 142 mg/dL (65-115) H 06/29/24 16:16 POC Glucose 140 mg/dL (70-110) H 06/29/24 16:15 Calculated Osmolality 290 mOsm/kg (285-295) 06/29/24 16:16 Calcium 9.0 mg/dL (8.5-10.5) 06/29/24 16:16 Total Bilirubin 0.2 mg/dL (0.15-1.2) 06/29/24 16:16 AST 18 U/L (0-40) 06/29/24 16:16 ALT 20 U/L (0-41) 06/29/24 16:16 Alkaline Phosphatase 96 U/L (40-130) 06/29/24 16:16 Total Protein 6.3 g/dL (6.6-8.7) L 06/29/24 16:16 Albumin 4.1 g/dL (3.5-5.2) 06/29/24 16:16 Globulin 2.2 g/dL (1.3-4.6) 06/29/24 16:16 Urine Color Yellow (Yellow) 06/29/24 17:35 Urine Appearance Clear (CLEAR) 06/29/24 17:35 Urine pH 6.0 (5-7) 06/29/24 17:35 Ur Specific [place] 1.014 (1.005-1.030) 06/29/24 17:35 Urine Protein 1+ (Negative) A 06/29/24 17:35 Urine Glucose (UA) Negative (Normal) 06/29/24 17:35 Urine Ketones Negative (Negative) 06/29/24 17:35 Urine Blood Negative (Negative) 06/29/24 17:35 Urine Nitrate Negative (Negative) 06/29/24 17:35 Urine Bilirubin Negative (Negative) 06/29/24 17:35 Urine Urobilinogen 0.2 mg/dL (Negative) 06/29/24 17:35 Ur Leukocyte Esterase Negative (Negative) 06/29/24 17:35 Urine RBC 0-2 /hpf (0-2) 06/29/24 17:35 Urine WBC 0-5 /hpf (0-5) 06/29/24 17:35 Ur Squamous Epith Cells 0-5 /hpf (0-5) 06/29/24 17:35 Amorphous Sediment Not Reportable 06/29/24 17:35 Urine Bacteria None seen /hpf (NONE) 06/29/24 17:35 Hyaline Casts 0-4 /lpf H 06/29/24 17:35 Urine Opiates Screen Negative ng/mL (Negative) 06/29/24 17:35 Ur Barbiturates Screen Negative ng/mL (Negative) 06/29/24 17:35 Ur Phencyclidine Scrn Negative ng/mL (Negative) 06/29/24 17:35 Ur Amphetamines Screen Negative ng/mL (Negative) 06/29/24 17:35 U Benzodiazepines Scrn Negative ng/mL (Negative) 06/29/24 17:35 Urine Cocaine Screen Negative ng/mL (Negative) 06/29/24 17:35 U Marijuana (THC) Screen Negative ng/mL (Negative) 06/29/24 17:35 A&P Assessment and plan (1) TIA (transient ischemic attack): Admit the patient to [facility] for close neuro monitoring She is not a tPA candidate as his symptoms have resolved at the time of presentation. Continue telemetry monitoring on the unit to evaluate for underlying arrhythmias. Patient has a history of transient A-fib 67 years ago. Evaluated for palpitations back in the . No known history of arrhythmias formally diagnosed. CT head unremarkable Echocardiogram ordered and pending Start aspirin 81 mg daily Atorvastatin 40 mg daily Reported history of diabetes and hypertension, currently off all medications. Last reported A1c at 7.0, will check today. Additionally check lipid panel. Blood pressure currently ranging 1 60-1 70 systolic. Typically patient states this ranges around 140, which has been reportedly normal for him. PT OT speech therapy assessment Attestations 2 Medical Necessity Statement*: less than 2 midnight stay anticipated Coding Level of Care Code Acute Code for [facility] Diagnoses TIA (transient ischemic attack) G45.9
[2024-06-29 21:25] LABS: Glucose Point of Care 173 mg/dL (70-110)
[2024-06-29 21:27] LABS: Chol HDL Ratio 2.62 mg/dL (1.0-5.00); Cholesterol 165 mg/dL (0-200); HDL Cholesterol 63 mg/dL (60-100); LDL Cholesterol Calculated 75 mg/dL (50-129); LDL HDL Ratio 1.19 RATIO (0.00-3.22); Triglycerides 135 mg/dL (0-150)
[2024-06-29 21:34] LABS: Estmated Average Glucose 160; Hemoglobin A1C 7.2 % (4.0-6.0)
[2024-06-29] MEDS: atorvastatin 40 mg Tablet PO (22:51)
[2024-06-30] VITALS (7 sets, daily range): BP systolic 145–184; BP diastolic 72–92; PULSE 59–72; RESP 16; TEMP 36.7–36.9; O2SAT 92–97
--- NOTE | 2024-06-30 06:00 | USCV_ITS ---
Celestine Duong Age: 88 Gender: M : 1935 Exam Date: 06/30/2024 07:17 Ordering Phys: Robyn Watson MD Technologist: MORE Exam Location: [facility] Indication: cva Risk Factors: Previous Vascular Surgery: Right Brachial BP: / Left Brachial BP: / Right Left Velocity (cm/s) Spectral Plaque Velocity (cm/s) Spectral Plaque Syst/Diast Broadening Syst/Diast Broadening 90.40/ 16.70 Prox CCA 84.50 / 16.60 94.90/ 13.50 Mid CCA 88.10 / 17.80 92.90/ 14.60 Distal CCA 86.20 / 17.80 63.30/ 10.10 Prox ICA 58.70 / 10.30 45.60/ 11.70 Mid ICA 88.40 / 23.50 70.40/ 20.00 Distal ICA 51.80 / 13.80 96.20 ECA 63.10 0.70 ICA/CCA 0.70 Antegrade Vertebral Antegrade 44.70/ 13.20 cm/s 57.40/ 16.30 cm/s Bi Subclavian Bi 83.50 70.70 CONCLUSIONS Right ICA stenosis <50%. Moderate atheromatous plaque right carotid bulb/ICA. Left ICA stenosis <50%. Moderate atheromatous plaque left carotid bulb/ICA. Normal antegrade Doppler flow noted in the right vertebral artery. Normal antegrade Doppler flow noted in the left vertebral artery. Richard Zamorano MD (Electronically Signed) Final Date: 30 June 2024 10:26 S
--- NOTE | 2024-06-30 09:00 | CT_ITS ---
WS: [id number] CTA HEAD AND NECK TECHNIQUE: Contrast enhanced CTA of the head and neck with coronal and sagittal reformatted images an d maximum intensity projection (MIP) images. NASCET criteria utilized. CLINICAL INFORMATION: TIA COMPARISON: 06/29/2024 DLP: 1071.[address] scans at [facility] use at least one of these dose optimization techniques: automated e xposure control; mA and/or kV adjustment per patient size (includes targeted exams where dose is matc hed to clinical indication); or iterative reconstruction. FINDINGS: Moderate small vessel changes. Moderate parenchymal volume loss. Vascular calcification. RIGHT: RIGHT common carotid artery is patent. No significant RIGHT ICA stenosis. Moderate calcified a theromatous disease RIGHT carotid bulb. RIGHT ICA is patent to the skull base. Less than 50% RIGHT IC A stenosis. LEFT: LEFT common carotid artery is patent. Moderate calcified atheromatous plaque LEFT carotid bulb extending into the ICA. LEFT ICA is patent to the skull base. Less than 50% LEFT ICA stenosis. LEFT dominant vertebral artery. Both vertebral arteries are patent. Proximal basilar artery is patent . INTRACRANIAL CTA: Distal vertebral arteries are patent. Basilar artery is patent. Normal vascularity to the NURSE OB territo ry bilaterally. Mild intracranial atheromatous disease. Both ICAs are patent at the skull base. Cavernous carotid calcification. Normal vascularity to the AC A and MCA territories bilaterally. No evidence of proximal flow-limiting stenosis. CT/CT angio headneck* [id number] IMPRESSION: 1. Less than 50% cervical ICA stenosis. 2. No proximal flow-limiting intracranial stenosis. 3. Mild intracranial atheromatous disease in the NURSE OB territories.
--- NOTE | 2024-06-30 09:41 | PC.CHAP ---
Pastoral Care Encounter/Spiritual Assessment Type of Contact [] Declined chain saw mechanic visit [] Patient/Family/Request visit [] Outpatient visit [] Follow-up visit [] Physician referral [] Code/Alert [x] Routine visit [] Staff referral [] Actively dying [] Patient sleeping [] Family support [] [] Out of room [] Palliative care [] [] Receiving care in room [] Pre-surgical visit [] Trauma [] Long length of stay [] ICU visit [] Other: Relational/Emotional Strength [] Patient feels connected with others/family/visitors/staff [] Distress [] Loneliness/isolation [] Abandonment Spirituality of Patient [x] Person of Monica [] Attends Faith of their Monica [x] Believes in Prayer [] Reads Bible or Orthodox materials [] There are Spiritual issues to be addressed Ditch Repairer Interventions [x] Prayer [x] Active listening [] Non-anxious presence [] Spiritual/emotional support [] Crisis/trauma care [] Spiritual counseling [] Bereavement support [] Provided bereavement packet [x] Provided Bible/devotional materials [] Provided toy/stuffed animal, coloring book to patient or family member [] Provided Communion [] Anointing/[place] [] Salvation [x] Completed spiritual assessment [] Other: Impact on Illness or Injury [] Angry [] Fearful [] Anxious [] Often cries [] Exhaustion [] Unable to work [] Unable to attend baptist [] Unable to walk/stand [] Unable to read [] Unable to drive [] Unable to eat/drink [] Unable to sleep [] Unable to be with family [] Patient intubated [] Other: Summary Time spent with patient 10 min
[2024-06-30] MEDS: aspirin 81 mg EC Tablet PO (09:43)
--- NOTE | 2024-06-30 12:37 | P.DS_ITS ---
Discharge Providers Date of Admission: 06/29/24 17:17 Date of Discharge: June 30, 2024 Attending Provider at Admission: Robyn Watson MD Attending Provider at Discharge: Liila Marina MD Primary Care Provider: Juan Luis Yan DO Diagnoses at Discharge Discharge Diagnosis (1) TIA (transient ischemic attack): Status: Acute Reason for Visit Reason for Visit: slurring speech, confusion @ 2 pm Hospital Course Hospital Course Patient presented with slurred speech and acute onset weakness confusion dysarthria. He was brought to the hospital and diagnosed with TIA. Echocardiogram was performed which showed no regional wall motion abnormalities no valvular dysfunction EF of 75%. CTA head and neck ruled out significant carotid disease. Patient did note a history of possible palpitations from long time ago but has never been formally diagnosed with atrial fibrillation. He was set up with an event monitor at discharge. Sent home on aspirin atorvastatin and Plavix x 21 days to follow-up with neurology as an outpatient and primary care doctor. PT also evaluated the patient and he was recommended home. Physical Exam Narrative: General: No acute distress, AO x3 HEENT: PERRLA, pupils bilaterally equal and reactive, pallors not present Chest: Normal vesicular breath sounds, no added sounds, equal good air entry bilaterally CVS: S1-S2 regular, no murmurs, no tachycardia, no gallops, no rubs Abdomen: Soft, nontender, no organomegaly, bowel sounds present Neuro: No focal deficits, no facial deformity, AO x3, power 5/5 in all limbs Extremities: Status post amputation remotely of the left hand. Discharge Data Studies Completed and Pending Completed Studies During Hospitalization Category Date Time Status CT head thrombolytic [id number] Stat Cat Scan 06/29/24 16:10 Completed XR chest 1V portable [id number] Stat Exams 06/29/24 16:10 Completed CV carotid duplex BI* [id number] Routine Ultrasound 06/30/24 06:00 Completed Pending at discharge Category Date Time Status CTA head neck [CT angio headneck* [id number]] Urgent Cat Scan 06/30/24 09:00 Taken CV. echo complete* [id number] Routine Ultrasound 06/30/24 21:06 Ordered Radiology Impressions Chest X-Ray 06/29/24 16:10 IMPRESSION: No acute findings. Head CT 06/29/24 16:10 IMPRESSION: No acute intracranial abnormality. ASSESSMENT: ASPECTS ([place] Stroke Program Early CT Score) is 10. ADDENDUM: 06/29/24 0098 The findings were verbally communicated via telephone conference with LINDSAY Hebert at 4:31 PM SHADE BANDER on 06/29/2024. The findings were acknowledged and understood. Laboratory Results WBC 6.22 10^3/uL (3.29-11.43) 06/29/24 16:16 RBC 4.21 10^6/uL (3.85-5.65) 06/29/24 16:16 Hgb 12.60 g/dL (11.27-16.99) 06/29/24 16:16 Hct 39.6 % (37-53) 06/29/24 16:16 MCV 94.1 fl (82-101) 06/29/24 16:16 MCH 29.9 pg (27-33) 06/29/24 16:16 MCHC 31.8 g/dL (30-55) 06/29/24 16:16 RDW 12.9 % (12.1-15.1) 06/29/24 16:16 Plt Count 238 10^3/cmm (157-399) 06/29/24 16:16 MPV 10.1 fL (7.4-10.4) 06/29/24 16:16 Neut % (Auto) 65.6 % 06/29/24 16:16 Lymph % (Auto) 22.8 % 06/29/24 16:16 [place] % (Auto) 8.7 % 06/29/24 16:16 Eos % (Auto) 2.4 % 06/29/24 16:16 Baso % (Auto) 0.3 % 06/29/24 16:16 Neut # (Auto) 4.08 10^3/uL (1.8-7.7) 06/29/24 16:16 Lymph # (Auto) 1.4 10^3/uL (0.8-4.8) 06/29/24 16:16 [place] # (Auto) 0.5 10^3/uL (0.2-0.9) 06/29/24 16:16 Eos # (Auto) 0.2 10^3/uL (0.0-0.8) 06/29/24 16:16 Baso # (Auto) 0.0 10^3/uL (0.0-0.1) 06/29/24 16:16 Nucleated RBC % (auto) 0 % 06/29/24 16:16 Nucleated RBCs # 0.0 /100WBC 06/29/24 16:16 PT 11.60 SECONDS (12.1-14.9) L 06/29/24 16:16 INR 0.79 (0.8-1.2) L 06/29/24 16:16 APTT 21.9 SECONDS (23.9-36.7) L 06/29/24 16:16 Sodium 138 mmol/L (136-145) 06/29/24 16:16 Potassium 4.8 mmol/L (3.5-5.1) 06/29/24 16:16 Chloride 103 mmol/L (98-107) 06/29/24 16:16 Carbon Dioxide 23 mmol/L (22-29) 06/29/24 16:16 Anion Gap 16.8 (5-19) 06/29/24 16:16 BUN 16 mg/dL (8-23) 06/29/24 16:16 Creatinine 0.9 mg/dL (0.7-1.2) 06/29/24 16:16 GFR Calculation Not Reportable 06/29/24 16:16 Glucose 142 mg/dL (65-115) H 06/29/24 16:16 POC Glucose 173 mg/dL (70-110) H 06/29/24 21:22 Estimat Average Glucose 160 06/29/24 16:16 Hemoglobin A1c 7.2 % (4.0-6.0) H 06/29/24 16:16 Calculated Osmolality 290 mOsm/kg (285-295) 06/29/24 16:16 Calcium 9.0 mg/dL (8.5-10.5) 06/29/24 16:16 Total Bilirubin 0.2 mg/dL (0.15-1.2) 06/29/24 16:16 AST 18 U/L (0-40) 06/29/24 16:16 ALT 20 U/L (0-41) 06/29/24 16:16 Alkaline Phosphatase 96 U/L (40-130) 06/29/24 16:16 Total Protein 6.3 g/dL (6.6-8.7) L 06/29/24 16:16 Albumin 4.1 g/dL (3.5-5.2) 06/29/24 16:16 Globulin 2.2 g/dL (1.3-4.6) 06/29/24 16:16 Triglycerides 135 mg/dL (0-150) 06/29/24 16:16 Cholesterol 165 mg/dL (0-200) 06/29/24 16:16 LDL Cholesterol, Calc 75 mg/dL (50-129) 06/29/24 16:16 HDL Cholesterol 63 mg/dL (60-100) 06/29/24 16:16 LDL/HDL Ratio 1.19 RATIO (0.00-3.22) 06/29/24 16:16 Cholesterol/HDL Ratio 2.62 mg/dL (1.0-5.00) 06/29/24 16:16 Urine Color Yellow (Yellow) 06/29/24 17:35 Urine Appearance Clear (CLEAR) 06/29/24 17:35 Urine pH 6.0 (5-7) 06/29/24 17:35 Ur Specific [place] 1.014 (1.005-1.030) 06/29/24 17:35 Urine Protein 1+ (Negative) A 06/29/24 17:35 Urine Glucose (UA) Negative (Normal) 06/29/24 17:35 Urine Ketones Negative (Negative) 06/29/24 17:35 Urine Blood Negative (Negative) 06/29/24 17:35 Urine Nitrate Negative (Negative) 06/29/24 17:35 Urine Bilirubin Negative (Negative) 06/29/24 17:35 Urine Urobilinogen 0.2 mg/dL (Negative) 06/29/24 17:35 Ur Leukocyte Esterase Negative (Negative) 06/29/24 17:35 Urine RBC 0-2 /hpf (0-2) 06/29/24 17:35 Urine WBC 0-5 /hpf (0-5) 06/29/24 17:35 Ur Squamous Epith Cells 0-5 /hpf (0-5) 06/29/24 17:35 Amorphous Sediment Not Reportable 06/29/24 17:35 Urine Bacteria None seen /hpf (NONE) 06/29/24 17:35 Hyaline Casts 0-4 /lpf H 06/29/24 17:35 Urine Opiates Screen Negative ng/mL (Negative) 06/29/24 17:35 Ur Barbiturates Screen Negative ng/mL (Negative) 06/29/24 17:35 Ur Phencyclidine Scrn Negative ng/mL (Negative) 06/29/24 17:35 Ur Amphetamines Screen Negative ng/mL (Negative) 06/29/24 17:35 U Benzodiazepines Scrn Negative ng/mL (Negative) 06/29/24 17:35 Urine Cocaine Screen Negative ng/mL (Negative) 06/29/24 17:35 U Marijuana (THC) Screen Negative ng/mL (Negative) 06/29/24 17:35 Vitals Last Vital Signs Temp 98.1 F 06/30/24 11:25 Pulse 67 06/30/24 11:25 Resp 16 06/30/24 11:25 BP 172/92 06/30/24 11:25 Pulse Ox 94 06/30/24 11:25 O2 Del Method Room Air 06/30/24 11:25 Discharge Plan Discharge Patient Disposition: Home Condition: Stable Prescriptions: New atorvastatin 40 mg Tablet 40 mg PO BEDTIME Qty: 30 0RF clopidogrel 75 mg Tablet 75 mg PO DAILY Qty: 21 0RF aspirin 81 mg Tablet,Delayed Release (Dr/Ec) 81 mg PO DAILY Qty: 30 0RF Continued prostate support health liquid 1 100 ml PO DAILY tamsulosin 0.4 mg capsule 0.4 mg PO BID albuterol sulfate 90 mcg/actuation HFA aerosol inhaler 2 inh INHALATION Q6H PRN (Reason: shortness of breath or wheezing) Qty: 8 0RF zinc 100 mg Tablet 100 mg PO DAILY vitamin E 200 unit Tablet 200 unit PO DAILY magnesium 200 mg Tablet 200 mg PO DAILY vitamin A-C-D3-cod liver oil 4,000-50-200 [id number] Tablet,Chewable 1 tab PO DAILY cholecalciferol (vitamin D3) [Vitamin D3] 125 mcg (5,000 unit) Tablet 125 mcg PO DAILY dutasteride 0.5 mg capsule 0.5 mg PO DAILY Discharge Orders: Discharge Order (Routine); Ordered 06/30/24 Ordered By: Lilia Marina Other Ambulatory Orders: MCT/Event Monitor 21 Days (Routine) Timeframe: 1 Day Facility: [facility] - Location: Radiology Ordered By: Lilia Marina Referrals: Shahana Norris MD [Physician] - 2 weeks Juan Luis Yan DO [Primary Care Provider] - 4-7 days (We have notified your physician's clinic of the need for a follow-up appointment to be scheduled. If you have not heard from them within the next 2 business days, please call them directly. ) Discharge Diet: Soft Mechanical Discharge Activity: Resume usual activity Patient Instructions: Aspirin (By mouth), Atorvastatin (By mouth) (Lipitor, Atorvaliq), Clopidogrel (By mouth) (Plavix), Transient Ischemic Attack (DC), Opioid Safety Activity Restrictions/Additional Instructions: [facility] has been contacted regaurding your heart monitor and they will be contacting you. If you have not heard from them by tomorrow afternoon please call the clinic. Discharge Attestations Time Spent in Discharge Care*: less than 30 min Quality Metrics Clinical Quality Measures [ No reported AMI, CVA or VTE this stay] Coding Level of Care Code Acute Code for [facility] Diagnoses TIA (transient ischemic attack) G45.9
--- NOTE | 2024-06-30 16:03 | PC.OT ---
OT EVALUATION ORDERS RECEIVED. PATIENT IN CT SCAN AT 1135 DISCHARGE ORDERS NOW IN; NO OT EVALUATION ABLE TO BE COMPLETED AT THIS TIME. WILL ATTEMPT TOMORROW IF PATIENT STILL HOSPITALIZED.
--- NOTE | 2024-06-30 21:06 | USCV_ITS ---
GarcíaapoorvalisaCelestine Age: 88 Gender: M : 1935 Exam Date: 06/30/2024 13:23 Ordering Phys: Robyn Watson MD Technologist: Exam Location: [facility] [place] Indication: chest pain BP: 125 / 74 HR: 74 Rhythm: Sinus Technical Quality: Adequate MEASUREMENTS (Male / Female) Normal Values 2D ECHO LV Diastolic Diameter PLAX 4.8 cm 4.2 - 5.9 / 3.9 - 5.3 cm IVS Diastolic Thickness 1.4 cm 0.6 - 1.0 / 0.6 - 0.9 cm IVS Systolic Thickness 1.9 cm LVPW Diastolic Thickness 1.3 cm 0.6 - 1.0 / 0.6 - 0.9 cm LVPW Systolic Thickness 2.0 cm LVOT Diameter 2.0 cm LV Ejection Fraction 2D Teich 75.2 % LV Ejection Fraction MOD 4C 65.5 % LV Ejection Fraction MOD 2C 55.6 % LV Ejection Fraction 2C AL 56.1 % LA Diameter 2.5 cm RA Systolic Volume 4C AL 40.0 ml RA Systolic Volume 4C MOD 38.4 ml Aorta at Sinotubular Diameter 3.5 cm M-MODE LA Ao Ratio MM 0.9 AV Cusp Separation MM 1.8 cm DOPPLER AV Peak Velocity 129.0 cm/s LVOT Peak Velocity 87.0 cm/s AV Area Cont Eq vti 2.2 cm squared AV Area Cont Eq pk 2.2 cm squared MV Peak Velocity 102.0 cm/s TR Peak Velocity 209.0 cm/s TR Peak Gradient 17.5 mmHg TV Peak E Velocity 64.0 cm/s PV Peak Velocity 101.0 cm/s FINDINGS Left Ventricle Normal left ventricular size and systolic function, EF 75%.no regional wall motion abnormalities. Right Ventricle The right ventricle is normal in size and function. Right Atrium The right atrium is normal in size. Left Atrium The left atrium is normal in size. Mitral Valve Trace mitral valve regurgitation. Aortic Valve Thickened aortic valve. Tricuspid Valve No gross abnormalities noted Pulmonic Valve Pulmonic valve not well visualized. Pericardium Normal pericardium without effusion. Aorta Normal ascending aorta dimension. IVC Inferior vena cava not visualized. CONCLUSIONS Normal left ventricular size and systolic function, EF 75%. No regional wall motion abnormalities. Thickened aortic valve. Trace mitral valve regurgitation. There is no pericardial effusion. There are no intracardiac masses. Compared to the study from 11/23/2016, there may not be a significant change Dr Rosi Cardoso MD [facility] (Electronically Signed) Final Date: 30 June 2024 14:37 S
== END 2024-06-30 17:00 | disposition home or self-care (01) ==
LOC: ER 16:38 → ER IP 18:01 → MEDSURG 20:37
PROVIDERS: Admitting Provider Student in an Organized Health Care Education/Training Program; Emergency Provider Emergency Medicine; PCP Electrodiagnostic Medicine; Visit Provider Internal Medicine
DX: G45.9 Transient cerebral ischemic attack, unspecified (principal); I48.91 Unspecified atrial fibrillation; E11.22 Type 2 diabetes mellitus with diabetic chronic kidney disease; N18.9 Chronic kidney disease, unspecified; Z86.16 Personal history of COVID-19
CPT/HCPCS: 36416; 70450; 70496; 70498; 71045; 80053; 80061; 80306; 81001; 82962; 83036; 85025; 85610; 85730; 92523; 92610; 93005; 93306; 93880; 97161; 99285; G0378

== ENCOUNTER → 2024-07-18 08:48 | Outpatient (BNVA) | payer MEDICARE, OTHER, SELFPAY | PROVIDERS: PCP Electrodiagnostic Medicine; Visit Provider Internal Medicine | DX: I48.91 Unspecified atrial fibrillation (principal); Z87.891 Personal history of nicotine dependence; Z86.73 Personal history of transient ischemic attack (TIA), and cerebral infarction without residual deficits | CPT/HCPCS: 99204 ==

== ENCOUNTER 2025-01-30 10:28 | Emergency (ER) | payer MEDICARE, OTHER, SELFPAY ==
[2025-01-30 10:32] VITALS: BP 129/85; PULSE 66; RESP 17; TEMP 36.4; O2SAT 96
--- OUTSIDE RECORDS SUMMARY | 2025-01-30 10:36 | XMS_ITS | Encounter Summary ---
Author Organization [facility] Address [address] [place] [address] Care Team Providers Care Clinical Pathologist Name Role Phone Unavailable Primary Care Provider Unavailabl e Encounter Details Date Type Department Care Team (Latest Contact Info) Description 02/18/1998 Outpatient Historical [facility] 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
--- OUTSIDE RECORDS SUMMARY | 2025-01-30 10:36 | XMS_ITS | Clinical Summary ---
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
--- NOTE | 2025-01-30 10:38 | XR_ITS ---
WS: [id number] Portable AP upright chest, 01/30/2025 Clinical Data: weakness Comparison: Portable chest, 06/29/2024 Findings: No nodules, masses or effusions are seen. The heart is normal. The pulmonary vascularity is not increased. No pneumonia or pneumothorax is seen. The aortic arch and descending thoracic aorta showed minimal calcification and tortuosity. Monitor leads are on the chest wall. XR/XR chest 1V portable [id number] Impression: Atherosclerosis.
--- NOTE | 2025-01-30 10:45 | ECG_ITS ---
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 Measurements Intervals [place] Rate: 63 P: 118 [place]: 217 QRS: 103 QRSD: 117 T: 123 QT: 408 QTc: 420 Interpretive Statements SINUS RHYTHM WITH FIRST DEGREE AV BLOCK RIGHT AXIS DEVIATION [QRS AXIS > 100] LOW QRS VOLTAGE [QRS DEFLECTION < 0.5/1.0 mV IN LIMB/CHEST LEADS] MODERATE INTRAVENTRICULAR CONDUCTION DELAY [110+ ms QRS DURATION] Septal infarction, age-indeterminate Compared to ECG 06/29/2024 16:23:40 Right-axis deviation now present Low QRS voltage now present Intraventricular conduction delay now present Electronically Signed On 01-30-2025 14:04:57 CDT by Soy Otoole M.D. [id number] [id number]
--- NOTE | 2025-01-30 10:46 | W.ED.WEAKNES ---
HPI - Weakness General: Chief complaint: Weakness Stated complaint: WEAKNESS Time Seen by Provider: 01/30/25 10:31 History of Present Illness: Patient is a 89-year-old gentleman with history HTN, A-fib on Xarelto, presented to the ED due to weakness. This was upon wakening. Bilateral lower extremities are weak. This is not unilateral. Patient does not really remember events. [id number] related to EMS that gave report that patient was walking outside about 6 AM, and she saw him squat down to sit. Patient does not recall any of the events. Denies any shortness of breath, fevers. No sick contact. and son now here. was the one that saw the patient become weak, and fall down. He did not injure his head. He did not even hit his head. He is not on Xarelto. notes that he has never been on or taken Xarelto. Pharmacy they are to update chart. was concerned patient was CVA. He did take his aspirin, full strength. notes that he had both lower extremities that were weak, and was staggering to get back in the house. His weakness was upon awakening. Associated symptoms: Reports confusion; Denies chest pain, chills, fever(s), headache(s), nausea or vomiting Related Data Home Medications ?Medication ?Instructions ?Recorded ?Confirmed cholecalciferol (vitamin D3) 125 125 mcg PO DAILY 01/24/21 01/30/25 mcg (5,000 unit) tablet (Vitamin D3) magnesium 200 mg tablet 200 mg PO DAILY 01/24/21 01/30/25 vitamin A-C-D3-cod liver oil 4,000 1 tab PO DAILY 01/24/21 01/30/25 unit-50 mg-200 unit chewable tablet tamsulosin 0.4 mg capsule 0.4 mg PO BID 02/01/22 01/30/25 ascorbate calcium (vitamin C) 500 500 mg PO DAILY 07/18/24 01/30/25 mg tablet aspirin 325 mg tablet 325 mg PO QPM 01/30/25 01/30/25 vitamin E 268 mg (400 unit) capsule 268 mg PO DAILY 01/30/25 01/30/25 zinc gluconate 100 mg tablet 100 mg PO .Q3D 01/30/25 01/30/25 Previous Rx's ?Medication ?Instructions ?Recorded amlodipine 2.5 mg tablet (Norvasc) 2.5 mg PO DAILY #90 tabs 09/08/24 Allergies Allergy/AdvReac Type Severity Reaction Status Date / Time No Known Allergies Allergy Verified 07/18/24 09:01 Review of Systems General: Reports: 10 or more systems reviewed and unremarkable except in HPI and below Const: Reports: malaise; Denies: fever(s), chills or body aches Eyes: Denies: change in vision or blurry vision ENMT: Denies: throat pain or mouth pain Card: Denies: chest pain or palpitations Resp: Denies: dyspnea or non-productive cough GI: Denies: abdominal pain, nausea or vomiting : Denies: flank pain or difficulty urinating Musc: Reports: muscle weakness; Denies: neck pain, back pain or joint pain Skin/Breast: Denies: rash or pruritus Neuro: Reports: weakness in extremities, difficulty walking (due to weakness) and confusion; Denies: headache(s), numbness in extremities, sensory changes, lack of coordination, frequent falls, dizziness or vertigo Psych: Denies: anxiety PFSH ED PFSH: Medical History (Updated 01/30/25 @ 13:52 by GERARDO Armas) Nocturnal polyuria Urolithiasis Ureteral calculus, left Afib Diabetes Paroxysmal supraventricular tachycardia CKD (chronic kidney disease) Diabetes mellitus COVID-19 Surgical History Hx of right inguinal hernia repair History of amputation of left hand History of removal of ureteral stent Family History Father , AT AGE 83 Dementia Mother , AT AGE 87 Diabetes Social History Smoking and tobacco/nicotine status: former use of tobacco/nicotine Alcohol intake: current Alcohol intake frequency: holidays/special occasions only Alcohol type: wine Substance/Drug Use: unknown Adopted: No Caregiver/support person: No Lives independently: No Household members: spouse Marital status: Current occupational status: retired Physical Exam Const: COMMON NORMALS: no acute distress, average body habitus, patient oriented x3, no limitations and alert GENERAL APPEARANCE: cooperative and comfortable HENMT: COMMON NORMALS: normocephalic, atraumatic and TM's normal bilaterally HEAD & SCALP: normocephalic and atraumatic FACE & SINUS: normal facial exam, sinuses nontender and face symmetric TYMPANIC MEMBRANE: TM's normal bilaterally Neck/C-Spine: COMMON NORMALS: full ROM, no lymphadenopathy, supple and no meningeal signs Lymph: LYMPHATIC: no lymphadenopathy noted Chest: COMMONS NORMALS: normal inspection of the chest and normal palpation of entire chest wall Resp: AUSCULTATION: crackles (distal) Laterality: bilateral Cardio: COMMON NORMALS: regular rate and regular rhythm RATE: regular rate RHYTHM: regular rhythm GI: COMMON NORMALS: Normal to inspection, nondistended, normoactive bowel sounds present and Soft to palpation PALPATION: Yes Soft to palpation : COMMON NORMALS: Yes no CVA tenderness BLADDER/KIDNEY EXAM: Yes no CVA tenderness Back/Pelvis: COMMON NORMALS: no CVA tenderness Neuro: COMMON NORMALS: patient oriented x3, CN's II-XII intact bilaterally, moves all extremities, no focal motor deficits and no sensory deficits noted SENSORIUM/ORIENTATION: Yes alert MENINGEAL SIGNS: Yes no meningeal signs Psych: COMMON NORMALS: mental status grossly normal, Normal thought process present, cooperative, normal affect and speech normal SPEECH: Yes normal speech THOUGHT PROCESS: Normal thought process present Course Reevaluation(s): Reevaluation #1: Patient states producing more urine, feeling better Reevaluation #2: Patient has walked, and feels back to normal. Vital Signs: Vital signs: Vital Signs Temperature 97.5 F L 01/30/25 10:32 Pulse Rate 65 01/30/25 14:58 Respiratory Rate 18 01/30/25 14:58 Blood Pressure 153/78 01/30/25 14:58 Pulse Oximetry 97 01/30/25 14:58 Oxygen Delivery Me thod Room Air 01/30/25 10:32 MDM - Weakness Medical Decision Making 89-year-old gentleman on daily full-strength aspirin, 325 mg, compliance, presents with awakening weakness. Certainly since he was awoken with the weakening, he is out of the window for concern of stroke, as well family was concerned of stroke, however this is bilateral, not unilateral. Gait is not disturbed or wavering. On reevaluation, patient is feeling better. I suspect the current issues are secondary to hypovolemia/dehydration. His creatinine is 1.2, baseline is typically 0.6?0.9. He does state he has a slight amount of proteins that his regular doctor has discussed with him and his urine. This is present today. That may be chronic, however the elevation of creatinine is new. He will receive a total of 1 L, and take appropriate fluid intake. Patient has been consuming a great deal amount of peaches, and had a half of watermelon yesterday, however he does appear slightly hypovolemic. He will increase his fluid intake. When I first saw him, he was sweaty in his overalls, and we remove these for examination. Sweat loss due to heat could also cause [place] I have also asked his and patient to bring him back if something else delineates. All their questions were answered to their satisfaction. Medical Records I reviewed the patient's medical records. Lab Data I reviewed the patient's lab results. 01/30/25 10:50 01/30/25 11:48 Radiology Impressions Chest X-Ray 01/30/25 10:38 Impression: Atherosclerosis. Head CT 01/30/25 12:13 IMPRESSION: 1. No evidence of intracranial hemorrhage or mass effect. 2. Slight sphenoid sinusitis 3. No acute intracranial findings. Laboratory Results WBC 6.35 10^3/uL (3.29-11.43) 01/30/25 10:50 RBC 4.08 10^6/uL (3.85-5.65) 01/30/25 10:50 Hgb 12.20 g/dL (11.27-16.99) 01/30/25 10:50 Hct 38.3 % (37-53) 01/30/25 10:50 MCV 93.9 fl (82-101) 01/30/25 10:50 MCH 29.9 pg (27-33) 01/30/25 10:50 MCHC 31.9 g/dL (30-55) 01/30/25 10:50 RDW 13.1 % (12.1-15.1) 01/30/25 10:50 Plt Count 217 10^3/cmm (157-399) 01/30/25 10:50 MPV 10.5 fL (7.4-10.4) H 01/30/25 10:50 Neut % (Auto) 74.4 % 01/30/25 10:50 Lymph % (Auto) 15.9 % 01/30/25 10:50 [place] % (Auto) 6.9 % 01/30/25 10:50 Eos % (Auto) 2.0 % 01/30/25 10:50 Baso % (Auto) 0.6 % 01/30/25 10:50 Neut # (Auto) 4.72 10^3/uL (1.8-7.7) 01/30/25 10:50 Lymph # (Auto) 1.0 10^3/uL (0.8-4.8) 01/30/25 10:50 [place] # (Auto) 0.4 10^3/uL (0.2-0.9) 01/30/25 10:50 Eos # (Auto) 0.1 10^3/uL (0.0-0.8) 01/30/25 10:50 Baso # (Auto) 0.0 10^3/uL (0.0-0.1) 01/30/25 10:50 Nucleated RBC % (auto) 0 % 01/30/25 10:50 Nucleated RBCs # 0.0 /100WBC 01/30/25 10:50 Sodium 135 mmol/L (136-145) L 01/30/25 11:48 Potassium 5.3 mmol/L (3.5-5.1) H 01/30/25 11:48 Chloride 100 mmol/L (98-107) 01/30/25 11:48 Carbon Dioxide 23 mmol/L (22-29) 01/30/25 11:48 Anion Gap 17.3 (5-19) 01/30/25 11:48 BUN 22 mg/dL (8-23) 01/30/25 11:48 Creatinine 1.2 mg/dL (0.7-1.2) 01/30/25 11:48 GFR Calculation Not Reportable 01/30/25 11:48 Glucose 164 mg/dL (65-115) H 01/30/25 11:48 Calculated Osmolality 287 mOsm/kg (285-295) 01/30/25 11:48 Lactic Acid 1.6 mmol/L (0.5-2.2) 01/30/25 11:48 Calcium 9.1 mg/dL (8.5-10.5) 01/30/25 11:48 Magnesium 1.8 mg/dL (1.7-2.3) 01/30/25 11:48 Total Bilirubin 0.3 mg/dL (0.15-1.2) 01/30/25 11:48 AST 18 U/L (0-40) 01/30/25 11:48 ALT 22 U/L (0-41) 01/30/25 11:48 Alkaline Phosphatase 87 U/L (40-130) 01/30/25 11:48 Creatine Kinase 155 U/L (39-308) 01/30/25 11:48 Troponin T Baseline 25 ng/L (0-15) H 01/30/25 10:50 Troponin T 120 Minute 23.84 ng/L (0-15) H 01/30/25 11:48 Delta Troponin T -1.16 ABS# (0-10) L 01/30/25 11:48 C-Reactive Protein 3.0 mg/L (0.0-4.9) 01/30/25 11:48 NT-Pro-B Natriuret Pep 139 pg/mL (0-450) 01/30/25 11:48 Total Protein 6.6 g/dL (6.6-8.7) 01/30/25 11:48 Albumin 4.2 g/dL (3.5-5.2) 01/30/25 11:48 Globulin 2.4 g/dL (1.3-4.6) 01/30/25 11:48 Procalcitonin 0.05 ng/mL (0-0.5) 01/30/25 11:48 TSH 2.38 uIU/mL (0.27-4.20) 01/30/25 11:48 Urine Color Dark yellow (Yellow) A 01/30/25 11:37 Urine Appearance Clear (CLEAR) 01/30/25 11:37 Urine pH 8.0 (5-7) A 01/30/25 11:37 Ur Specific [place] 1.017 (1.005-1.030) 01/30/25 11:37 Urine Protein 1+ (Negative) A 01/30/25 11:37 Urine Glucose (UA) Negative (Normal) 01/30/25 11:37 Urine Ketones Negative (Negative) 01/30/25 11:37 Urine Blood Negative (Negative) 01/30/25 11:37 Urine Nitrate Negative (Negative) 01/30/25 11:37 Urine Bilirubin Negative (Negative) 01/30/25 11:37 Urine Urobilinogen 0.2 mg/dL (Negative) 01/30/25 11:37 Ur Leukocyte Esterase Negative (Negative) 01/30/25 11:37 Urine RBC Rare /hpf (0-2) 01/30/25 11:37 Urine WBC Rare /hpf (0-5) 01/30/25 11:37 Ur Squamous Epith Cells Rare /hpf (0-5) 01/30/25 11:37 Amorphous Sediment Not Reportable 01/30/25 11:37 Urine Bacteria None /hpf (NONE) 01/30/25 11:37 Hyaline Casts 0-4 /lpf H 01/30/25 11:37 Urine Mucus Trace /hpf 01/30/25 11:37 Influenza A (PCR) Negative (Negative) 01/30/25 10:50 Influenza Type B (PCR) Negative (Negative) 01/30/25 10:50 RSV (PCR) Negative (Negative) 01/30/25 10:50 SARS-CoV-2 (PCR) Negative (Negative) 01/30/25 10:50 All radiology interpretation(s) finalized by discharge EKG Data EKG 1: Interpretation: Sinus rhythm, low voltage, right axis, QTc 416 Discharge Plan Discharge Patient Disposition: Home Clinical Impression: Dehydration, Creatinine elevation Condition: Stable Prescriptions: No Action tamsulosin 0.4 mg capsule 0.4 mg PO BID ascorbate calcium (vitamin C) 500 mg tablet 500 mg PO DAILY amlodipine [Norvasc] 2.5 mg tablet 2.5 mg PO DAILY Qty: 90 3RF magnesium 200 mg Tablet 200 mg PO DAILY vitamin A-C-D3-cod liver oil 4,000-50-200 [id number] Tablet,Chewable 1 tab PO DAILY cholecalciferol (vitamin D3) [Vitamin D3] 125 mcg (5,000 unit) Tablet 125 mcg PO DAILY zinc gluconate 100 mg Tablet 100 mg PO .Q3D aspirin 325 mg Tablet 325 mg PO QPM vitamin E 268 mg (400 unit) Capsule 268 mg PO DAILY Discharge Orders: Discharge ED (Routine); Ordered 01/30/25 Ordered By: Katelyn Wittke Referrals: Juan Luis Yan, DO [Primary Care Provider, Family Practice] Discharge Diet: Usual diet Discharge Activity: Increase activity as tolerated Patient Instructions: Dehydration (ED), Patient Portal & Jose Alejandro Instructions Activity Restrictions/Additional Instructions: Take appropriate amount of fluids daily?64 ounces Caution on high potassium diet, although being dehydrated, this will make it worse as we discussed Call your doctor for follow-up?it is important to follow-up with your primary care physician. Since this just all happened this morning, if something has delineated or change, return to the ED. Call your doctor for follow-up. Return to ED for changing issues, fever greater 100.4 ?F. Print Language: Egyptian Coding Level of Care Code ED Sharepoint Architect for Gwendolyn Lees
[2025-01-30 10:58] LABS: Hematocrit 38.3 % (37-53); Hemoglobin 12.20 g/dL (11.27-16.99); Mean Corpuscular HGB Conc 31.9 g/dL (30-55); Mean Corpuscular Hemoglobin 29.9 pg (27-33); Mean Corpuscular Volume 93.9 fl (82-101); Nucleated Red Blood Cells % 0 %; Platelet Count 217 10^3/cmm (157-399); Red Blood Count 4.08 10^6/uL (3.85-5.65); White Blood Count 6.35 10^3/uL (3.29-11.43)
[2025-01-30 11:35] LABS: Respiratory Syncytial Virus Ce NEGATIVE (Negative); SARS-CoV-2 PCR NEGATIVE (Negative); Troponin(5th) Baseline 25 ng/L (0-15)
--- NOTE | 2025-01-30 12:00 | PC.PHAR ---
Pt states he takes his vitamins and supplements in the morning. Pt no longer takes Xarelto or Plavix, they were temporary medications after a stroke.
[2025-01-30 12:01] LABS: Glucose Urine UA Negative (Normal); Nitrate Urine Negative (Negative); Specific Gravity, Urine 1.017 (1.005-1.030)
[2025-01-30 12:06] VITALS: BP 161/88; PULSE 71; RESP 18; O2SAT 96
--- NOTE | 2025-01-30 12:13 | CT_ITS ---
WS: [id number] CT HEAD TECHNIQUE: Noncontrast CT of the head obtained from the skullbase to the vertex. CLINICAL INFORMATION: weakness, confusion COMPARISON: June 2024 DLP: 1076.[address] scans at [facility] use at least one of these dose optimization techniques: automated exposure control; mA and/or kV adjustment per patient size (includes targeted exams where dose is matched to clinical indication); or iterative reconstruction. FINDINGS: No evidence of intracranial hemorrhage or mass effect. Ventricular system and basal cisterns are patent. Moderate small vessel changes with moderate parenchymal volume loss. No extra-axial fluid collections. No evidence of mass or mass effect. Vascular calcification. Secretions in the sphenoid sinus. CT/CT head wo con* [id number] IMPRESSION: 1. No evidence of intracranial hemorrhage or mass effect. 2. Slight sphenoid sinusitis 3. No acute intracranial findings.
[2025-01-30 12:20] LABS: Lactic Sepsis W/Reflex 1.6 mmol/L (0.5-2.2)
[2025-01-30 12:30] VITALS: BP 150/76; PULSE 67; RESP 18; O2SAT 96
[2025-01-30 12:31] LABS: NT Pro B Type Natriuretic Pept 139 pg/mL (0-450); Procalcitonin 0.05 ng/mL (0-0.5); Thyroid Stimulating Hormone 2.38 uIU/mL (0.27-4.20)
[2025-01-30 12:40] LABS: Add Urine Microscopic? YES; UA Manual Slide Review YES; UA Slide Review UA Slide Review Perf
[2025-01-30 12:43] LABS: Alanine Aminotransferase 22 U/L (0-41); Albumin Level 4.2 g/dL (3.5-5.2); Alkaline Phosphatase 87 U/L (40-130); Anion Gap 17.3 (5-19); Aspartate Amino Transferase 18 U/L (0-40); Blood Urea Nitrogen 22 mg/dL (8-23); Calcium 9.1 mg/dL (8.5-10.5); Carbon Dioxide 23 mmol/L (22-29); Chloride 100 mmol/L (98-107); Creatinine Clr Calc Pharmacy 49.5086; Globulin 2.4 g/dL (1.3-4.6); Glucose 164 mg/dL (65-115); Magnesium 1.8 mg/dL (1.7-2.3); Osmolality Calculated 287 mOsm/kg (285-295); Potassium 5.3 mmol/L (3.5-5.1); Sodium 135 mmol/L (136-145); Total Protein 6.6 g/dL (6.6-8.7)
--- NOTE | 2025-01-30 12:49 | ECG_ITS ---
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 Measurements Intervals [place] Rate: 73 P: 65 [place]: 209 QRS: 39 QRSD: 112 T: 45 QT: 409 QTc: 453 Interpretive Statements SINUS RHYTHM LOW QRS VOLTAGE IN PRECORDIAL LEADS [QRS DEFLECTION < 1.0 mV IN CHEST LEADS] MODERATE INTRAVENTRICULAR CONDUCTION DELAY [110+ ms QRS DURATION] Compared to ECG 01/30/2025 10:45:13 First degree AV block no longer present Right-axis deviation no longer present Electronically Signed On 01-30-2025 14:24:41 CDT by Soy Otoole M.D. [id number]
[2025-01-30 12:56] LABS: Troponin 5 2HR 23.84 ng/L (0-15)
[2025-01-30 12:57] LABS: Troponin 5 2HR Delta -1.16 ABS# (0-10)
[2025-01-30 13:00] VITALS: BP 164/85; PULSE 67; RESP 14; O2SAT 96
[2025-01-30 14:00] VITALS: BP 153/72; PULSE 66; RESP 15; O2SAT 99
[2025-01-30 14:58] VITALS: BP 153/78; PULSE 65; RESP 18; O2SAT 97
== END 2025-01-30 15:15 | disposition home or self-care (01) ==
PROVIDERS: Emergency Provider Physician Assistant; PCP Electrodiagnostic Medicine
DX: E86.0 Dehydration (principal); R94.4 Abnormal results of kidney function studies; Z11.52 Encounter for screening for COVID-19; Z79.82 Long term (current) use of aspirin; Z87.891 Personal history of nicotine dependence; E11.22 Type 2 diabetes mellitus with diabetic chronic kidney disease; N18.9 Chronic kidney disease, unspecified
CPT/HCPCS: 36415; 70450; 71045; 80053; 81001; 82550; 83605; 83735; 83880; 84145; 84443; 84484; 85025; 86140; 87040; 87637; 93005; 96360; 96361; 99285; J7040